=== PATIENT | male | born 1945 | race Caucasian/White ===

== ENCOUNTER 2016-11-17 14:57 | Inpatient (IN) | payer MEDICARE ==
[2016-11-17] MEDS ORDERED: solu-MEDROL 125 MG IV ONE (15:26)
[2016-11-17] MEDS ORDERED: DUONEB 0.5-3 MG/3 ml Neb IH ONE ×2 (15:26→15:41)
[2016-11-17] MEDS ORDERED: Levofloxacin 500MG/100ML D5W 100 ML IV ONE ×2 (15:28→16:03)
--- NOTE | 2016-11-17 15:35 | ERPHSYRPT ---
- History of Present Illness Time Seen by Provider: 11/17/16 15:10 Source: patient Exam Limitations: clinical condition Patient Subjective Stated Complaint: NONPROD COUGH SINCE FRIDAY. SEEN BY [employer] RE[employer]ISHER FRIDAY AND WAS GIVEN ANTIBIOTICS AND PREDNISONE. STATES IS NOT FEELING ANY BETTER. Triage Nursing Assessment: AMBULATED TO ROOM PER SELF. SKIN W/D, COLOR NORMAL, RESP NONLABORED. Physician History: PATIENT COMPLAINS OF PRODUCTIVE COUGH WITH DYSPNEA, HAS NO RELIEF AFTER 4 DAYS TREATMENT OF ANTIBIOTIC KEFLEX WITH PREDNISONE. DENIES FEVER OR CHILLS. DENIES CHEST PAIN. Timing/Duration: day(s) Cough Quality/Degree: moderate Possible Cause: occasional episodes Modifying Factors: Improves With: activity, coughing Associated Symptoms: muscle aches, wheezing Allergies/Adverse Reactions: Iodinated Contrast Media - Oral and [IV Dye, Iodine Containing Contrast ] Allergy (Mild, Verified 11/17/16 15:06) Hives Penicillins Allergy (Mild, Verified 11/17/16 15:06) Hives Home Medications: Hydrocodone Bit/Acetaminophen [[place] 10-325 Tablet] 1 each PO TID PRN 05/20/14 [ History] Pregabalin [Lyrica 150Mg] 150 mg PO BID 06/25/16 [History] Metronidazole/Skin Cleansr #23 [[place] 0.75% Gel Kit] 1 each TP BID 08/26/16 [ History] Minocycline [Minocycline 100MG Cap] 100 mg PO BID 08/26/16 [History] Cephalexin Mh 500 mg [Keflex 500 mg] 500 mg PO TID 11/17/16 [History] Prednisone 10 mg [Deltasone 10 mg] 20 mg PO DAILY 11/17/16 [History] Zolpidem Tartrate [Ambien] 5 mg PO HS 11/17/16 [History] Hx Tetanus, Diphtheria Vaccination/Date Given: Yes (3 YRS AGO) Hx Influenza Vaccination/Date Given: Yes Hx Pneumococcal Vaccination/Date Given: Yes - Review of Systems Constitutional: Fever, Chills Eyes: No Symptoms Ears, Nose, & Throat: No Symptoms Respiratory: Cough, Dyspnea Cardiac: No Symptoms, No Chest Pain, No Edema, No Syncope Abdominal/Gastrointestinal: Constipation, No Abdominal Pain, No Nausea, No Vomiting, No Diarrhea Genitourinary Symptoms: No Symptoms, No Dysuria Musculoskeletal: No Symptoms, No Back Pain, No Neck Pain Skin: No Symptoms, No Rash Neurological: No Symptoms, No Dizziness, No Focal Weakness, No Sensory Changes Psychological: No Symptoms Endocrine: No Symptoms All Other Systems: Reviewed and Negative - Past Medical History Pertinent Past Medical History: Yes Neurological History: No Pertinent History ENT History: Glaucoma Cardiac History: Other Respiratory History: No Pertinent History Endocrine Medical History: No Pertinent History Musculoskeletal History: Arthritis GI Medical History: GERD, Hernia, Other History: No Pertinent History Psycho-Social History: Anxiety, Depression Male Reproductive Disorders: No Pertinent History Other Medical History: heart cath - Past Surgical History Past Surgical History: Yes Neuro Surgical History: No Pertinent History Cardiac: Cardiac Catheterization Respiratory: No Pertinent History Gastrointestinal: Colon Resection, Hernia Repair Genitourinary: No Pertinent History Musculoskeletal: Orthopedic Surgery Male Surgical History: No Pertinent History Other Surgical History: Pt had major facial reconstruction; also colon resection for obstruction by polyps, shoulder surgery, - Social History Smoking Status: Never smoker Exposure to second hand smoke: No Drug Use: none Patient Lives Alone: No - Nursing Vital Signs Nursing Vital Signs: Initial Vital Signs Temperature 97.4 F Temperature Source Oral Pulse Rate 90 Respiratory Rate 18 Blood Pressure [] 103/72 Pain Intensity 0 - Physical Exam General Appearance: no apparent distress, alert, other (NO AUDIBLE WHEEZES) Eye Exam: PERRL/EOMI, eyes nml inspection Ears, Nose, Throat Exam: normal ENT inspection, TMs normal, pharynx normal, moist mucous membranes Neck Exam: normal inspection, non-tender, supple, full range of motion Respiratory Exam: diminished breath sounds, wheezing, No respiratory distress Cardiovascular Exam: regular rate/rhythm, normal heart sounds Gastrointestinal/Abdomen Exam: soft, normal bowel sounds, No tenderness Back Exam: normal inspection, No CVA tenderness, No vertebral tenderness Extremity Exam: normal inspection, normal range of motion Neurologic Exam: alert, oriented x 3, cooperative, normal mood/affect, sensation nml, No motor deficits Skin Exam: normal color, warm, dry, No rash Lymphatic Exam: No adenopathy SpO2 Interpretation: normal SpO2: 97 Oxygen Delivery: Room Air - Course EKG Interpreted by Me: RATE, Sinus Rhythm, NORMAL AXIS - Radiology Exams Chest X-ray Interpretation: Interpreted by me (NO EVIDENCE OF INFILTRATES, NO CHANGE IN ELEVATION OF LEFT HEMIDIAPHRAM) Ordered Tests: Active Orders 24 hr Category Date Time Status Up Ad Rupa ROUTINE Activity 11/17/16 18:15 Ordered Admission/Status Order ROUTINE Care 11/17/16 18:14 Ordered Admission/Status Order ROUTINE Care 11/17/16 18:15 Ordered Code Status Order ROUTINE Care 11/17/16 18:14 Ordered EKG-ER Only STAT Care 11/17/16 15:26 Active IV Care Q6H Care 11/17/16 18:14 Ordered IV Insertion STAT Care 11/17/16 15:26 Active Isolation, Initiate & Maintain DAILY Care 11/17/16 18:15 Ordered Oxygen-ED Only NASAL CANNULA 2 lpm Care 11/17/16 15:26 Active Norman Jose Miguele, Apply ROUTINE Care 11/17/16 18:14 Ordered Vital Signs Q4H Care 11/17/16 18:15 Ordered Weight,Daily 0600 Care 11/17/16 18:14 Ordered Cardiac Diet Diet 11/17/16 Breakfast Ordered CHEST 1 VIEW (PORTABLE) Stat Exams 11/17/16 15:26 Taken BLOOD CULTURE Stat Lab 11/17/16 15:26 Ordered BMP Stat Lab 11/17/16 15:40 Completed CBC W DIFF Stat Lab 11/17/16 15:40 Completed MAGNESIUM Stat Lab 11/17/16 15:40 Completed Manual Differential NC Stat Lab 11/17/16 15:40 Completed TROPONIN Stat Lab 11/17/16 15:40 Completed Oxygen NASAL CANNULA 2 lpm RT 11/17/16 18:15 Ordered Pulse Oximetry CONTINUOUS RT 11/17/16 18:16 Ordered Respiratory Nebulizer STAT RT 11/17/16 15:27 Completed Respiratory Nebulizer STAT RT 11/17/16 16:54 Active Transfer Order Routine Transfer 11/17/16 18:13 Ordered Medication Summary Generic Name Dose Route Start Last Admin Trade Name Freq PRN Reason Stop Dose Admin Sodium Chloride 1,000 mls @ 250 mls/hr 11/17/16 15:30 11/17/16 16:09 Sodium Chloride 0.9% 1000 Ml IV 12/17/16 15:29 250 mls/hr .Q4H GARY Administration Discontinued Medications Generic Name Dose Route Start Last Admin Trade Name Freq PRN Reason Stop Dose Admin Albuterol/Ipratropium 3 ml 11/17/16 15:26 11/17/16 15:45 Duoneb 0.5-3 Mg/3 Ml Neb IH 03/19/17 15:27 3 ml STAT ONE Administration Albuterol/Ipratropium Confirm 11/17/16 15:41 Duoneb 0.5-3 Mg/3 Ml Neb Administered 11/17/16 15:42 Dose 3 ml IH .STK-MED ONE Levofloxacin/Dextrose 100 mls @ 100 mls/hr 11/17/16 15:28 11/17/16 16:09 Levofloxacin 500mg/100ml D5w IV 11/17/16 16:27 100 mls/hr STAT ONE Administration Sodium Chloride Confirm 11/17/16 16:03 Sodium Chloride 0.9% 1000 Ml Administered 11/17/16 16:04 Dose 1,000 mls @ ud .ROUTE .STK-MED ONE Levofloxacin/Dextrose Confirm 11/17/16 16:03 Levofloxacin 500mg/100ml D5w Administered 11/17/16 16:04 Dose 100 mls @ ud IV .STK-MED ONE Levalbuterol HCl Confirm 11/17/16 16:49 Xopenex 1.25 Mg/0.5 Ml Ud Nebule Administered 11/17/16 16:50 Dose 1.25 mg IH .STK-MED ONE Levalbuterol HCl 1.25 mg 11/17/16 16:54 11/17/16 16:55 Xopenex 1.25 Mg/0.5 Ml Ud Nebule IH 11/17/16 16:55 1.25 mg STAT ONE Administration Methylprednisolone Sodium Succinate 125 mg 11/17/16 15:26 11/17/16 16:09 Solu-Medrol 125 Mg IV 11/17/16 15:27 125 mg STAT ONE Administration Methylprednisolone Sodium Succinate Confirm 11/17/16 16:03 Solu-Medrol 125 Mg Administered 11/17/16 16:04 Dose 125 mg .ROUTE .STK-MED ONE Sodium Chloride Confirm 11/17/16 16:50 Sodium Chloride 3 Ml Ud Nebules Administered 11/17/16 16:51 Dose 3 ml IH .STK-MED ONE Lab/Rad Data: Laboratory Result Diagrams 11/17/16 15:40 11/17/16 15:40 Laboratory Results 11/17/16 11/17/16 11/17/16 Range/Units 15:40 15:40 15:38 WBC 3.4 L (4.0-10.5) K/mm3 RBC 5.54 (4.1-5.6) M/mm3 Hgb 17.4 (12.5-18.0) gm/dl Hct 48.9 (42-50) % MCV 88.3 (78-100) fl MCH 31.4 (26-32) pg MCHC 35.6 (32-36) g/dl RDW 13.6 (11.5-14.0) % Plt Count 145 L (150-450) K/mm3 MPV 11.6 H (6-9.5) fl Segmented Neutrophils 73 H (36.-66.) % Lymphocytes (Manual) 17 L (24-44) % Monocytes (Manual) 10 (0.0-12.0) % Differential Comment NORMAL Platelet Estimate NORMAL (NORMAL) Sodium 137 (136-145) mEq/L Potassium 3.9 (3.5-5.1) mEq/L Chloride 102 (98-107) mEq/L Carbon Dioxide 23.5 (21-32) mEq/L Anion Gap 15.5 H (5-15) MEQ/L BUN 13 (9-20) mg/dL Creatinine 1.34 H (0.55-1.30) mg/dl Estimated GFR 56 ML/MIN Glucose 164 H (70-110) MG/DL Calcium 8.5 (8.5-10.1) mg/dL Magnesium 2.0 (1.8-2.4) mg/dL Troponin I < 0.017 (0.000-0.056) ng/ml Influenza Type A Ag POSITIVE (NEGATIVE) Influenza Type B Ag NEGATIVE (NEGATIVE) RSV (PCR) NEGATIVE (Negative) - Progress Progress Note: 11/17/16 16:42 PATIENT GIVEN IV SOLUMEDROL 125, LEVAQUIN 500MG IVPB AFTER BLOOD CULTURES, DUONEB AEROSOL TX FOLLOWED BY XOPENEX 1.25MG AEROSOL TX, Discussed with : Tarun Will see patient in: hospital (observation) ([id number] FOR ADMISSION) - Departure Time of Disposition: 18:20 Departure Disposition: Observation Clinical Impression: EXACERBATION COPD, INFLUENZA A Condition: Stable Critical Care Time: No Referrals: GABBY LANE MD [Primary Care Provider] -
[2016-11-17 15:49] LABS: Mean Cell Volume 88.3 fl (78-100); Mean Corpuscular Hemoglobin 31.4 pg (26-32); Mean Platelet Volume 11.6 fl (6-9.5); Platelet Count 145 K/mm3 (150-450); Red Blood Count 5.54 M/mm3 (4.1-5.6); Red Cell Distribution Width 13.6 % (11.5-14.0); White Blood Count 3.4 K/mm3 (4.0-10.5)
[2016-11-17] MEDS ORDERED: Sodium Chloride 0.9% 1000 ML 1,000 ML ONE (16:03)
[2016-11-17] MEDS ORDERED: solu-MEDROL 125 MG ONE ×2 (16:03→21:40)
[2016-11-17] MEDS: Sodium Chloride 0.9% 1000 ML 1,000 ML IV SCH ×2 (16:09→22:02)
[2016-11-17 16:10] LABS: ANION GAP 15.5 MEQ/L (5-15); BLOOD UREA NITROGEN 13 mg/dL (9-20); CHLORIDE 102 mEq/L (98-107); Carbon Dioxide 23.5 mEq/L (21-32); Glucose 164 MG/DL (70-110); Potassium 3.9 mEq/L (3.5-5.1); SODIUM 137 mEq/L (136-145)
[2016-11-17 16:16] LABS: TROPONIN < 0.017 ng/ml (0.000-0.056)
[2016-11-17 16:45] LABS: Platelet Estimate NORMAL (NORMAL); Total Cells Counted 100
[2016-11-17] MEDS ORDERED: Xopenex 1.25 MG/0.5 ML UD NEBULE IH ONE ×2 (16:49→16:54)
[2016-11-17] MEDS ORDERED: Sodium Chloride 3 ML UD NEBULES IH ONE ×2 (16:50→23:06)
[2016-11-17] MEDS ORDERED: LEVOFLOXACIN 750MG/150ML D5W 150 ML IV SCH (18:15)
[2016-11-17] MEDS ORDERED: Xopenex 1.25 MG/0.5 ML UD NEBULE IH PRN (18:20)
--- NOTE | 2016-11-17 20:16 | XRAY ---
Indication: Cough. Comparison: August 26, 2016. Portable chest again demonstrates minimal bibasilar atelectasis/scarring. Upper lungs clear. Heart is not enlarged. Stable subcarinal calcified node. Bony thorax intact again with mild osteopenia and degenerative changes. Impression: Stable nonacute chest with chronic features.
[2016-11-17] MEDS: Norco 10/325 MG Tablet PO PRN (20:51)
[2016-11-17] MEDS: LYRICA 150MG PO SCH (22:02)
[2016-11-17] MEDS: solu-MEDROL 125 MG IV SCH (22:03)
[2016-11-17] MEDS: Xopenex 1.25 MG/0.5 ML UD NEBULE IH SCH (23:29)
[2016-11-17] MEDS: Ambien 5 MG Tablet PO SCH (23:50)
[2016-11-18] MEDS ORDERED: Sodium Chloride 3 ML UD NEBULES IH ONE ×2 (03:43→22:53)
[2016-11-18] MEDS: Xopenex 1.25 MG/0.5 ML UD NEBULE IH SCH ×6 (03:45→23:25)
[2016-11-18] MEDS: solu-MEDROL 125 MG IV SCH ×4 (05:46→17:27)
[2016-11-18] MEDS: DUONEB 0.5-3 MG/3 ml Neb IH SCH ×2 (06:24→06:26)
[2016-11-18] MEDS: Sodium Chloride 0.9% 1000 ML 1,000 ML IV SCH ×2 (06:25→20:57)
--- NOTE | 2016-11-18 07:51 | PCM.HP ---
History of Present Illness - Chief Complaint Chief Complaint: Shortness of Breath History of Present Illness: is a 71 year old male who presented with cough, fever and feeling poorly. Had +flu swab for influenza a, had wheezing as well. no hx of smoking, he has felt poorly for several days, failed outpatient treatment with po steroids and antibiotics - Review of Systems Constitutional: Fever, Chills Respiratory: Cough, Short Of Breath Cardiac: No Chest Pain, No Palpitations, No Syncope Abdominal/Gastrointestinal: No Abdominal Pain, No Nausea, No Vomiting, No Diarrhea Skin: No Rash All Other Systems: Reviewed and Negative Medications & Allergies Home Medications: Home Medication List Hydrocodone Bit/Acetaminophen [[place] 10-325 Tablet] 1 each PO TID PRN 05/20/14 [ History Confirmed 11/17/16] Pregabalin [Lyrica 150Mg] 150 mg PO BID 06/25/16 [History Confirmed 11/17/16] Metronidazole/Skin Cleansr #23 [[place] 0.75% Gel Kit] 1 each TP BID 08/26/16 [ History Confirmed 11/17/16] Minocycline [Minocycline 100MG Cap] 100 mg PO BID 08/26/16 [History Confirmed 11/17/16] Cephalexin Mh 500 mg [Keflex 500 mg] 500 mg PO TID 11/17/16 [History Confirmed 11/17/16] Prednisone 10 mg [Deltasone 10 mg] 20 mg PO DAILY 11/17/16 [History Confirmed 11/17/16] Zolpidem Tartrate [Ambien] 5 mg PO HS 11/17/16 [History Confirmed 11/17/16] Allergies/Adverse Reactions: Allergies Allergy/AdvReac Type Severity Reaction Status Date / Time Iodinated Contrast Media - Allergy Mild Hives Verified 11/17/16 15:06 Oral and [IV Dye, Iodine Containing Contrast ] Penicillins Allergy Mild Hives Verified 11/17/16 15:06 - Past Medical History Past Medical History: Yes Neurological History: No Pertinent History ENT History: Glaucoma Cardiac History: Other Respiratory History: No Pertinent History Endocrine Medical History: No Pertinent History Musculoskelatal History: Arthritis GI Medical History: GERD, Hernia, Other History: No Pertinent History Pyscho-Social History: Anxiety, Depression Male Reproductive Disorders: No Pertinent History Comment: heart cath - Past Surgical History Past Surgical History: Yes Neuro Surgical History: No Pertinent History Cardiac History: Cardiac Catheterization Respiratory Surgery: No Pertinent History GI Surgical History: Colon Resection, Hernia Repair Genitourinary Surgical Hx: No Pertinent History Musculskeletal Surgical Hx: Orthopedic Surgery Male Surgical History: No Pertinent History Other Surgical History: Pt had major facial reconstruction; also colon resection for obstruction by polyps, shoulder surgery, - Social History Smoking Status: Never smoker Exposure to second hand smoke: No Alcohol: None Drug Use: none - Physical Exam Vital Signs: Vital Signs - 24 hr Temp Pulse Resp BP Pulse Ox 11/18/16 06:25 60 20 94 L 11/18/16 06:00 18 11/18/16 04:00 98.2 F 63 18 124/67 96 11/18/16 03:45 63 16 96 11/18/16 02:00 18 11/18/16 00:00 98.1 F 68 18 138/79 95 11/17/16 23:29 68 18 95 11/17/16 20:00 97.4 F 90 103/72 97 11/17/16 19:19 97.4 F 90 103/72 97 11/17/16 18:24 97 11/17/16 16:55 90 18 98 11/17/16 16:45 87 24 103/72 95 11/17/16 15:45 81 20 96 11/17/16 15:01 97.4 F 81 20 97 Oxygen-Last 24 hours O2 Percentage 2 Liters = 28% General Appearance: no apparent distress, alert Eye Exam: PERRL/EOMI, eyes nml inspection Respiratory Exam: wheezing, No accessory muscle use Cardiovascular Exam: regular rate/rhythm Gastrointestinal/Abdomen Exam: soft, normal bowel sounds, No tenderness, No mass Extremity Exam: normal inspection, normal range of motion, pelvis stable Skin Exam: normal color, warm, dry, No rash Results - Other Procedures and Tests Respiratory Therapy 11/17/16 18:15 Oxygen NASAL CANNULA 2 lpm 11/17/16 22:22 Respiratory Nebulizer Q4H Assessment/Plan (1) Influenza A Current Visit: Yes Status: Acute Assessment & Plan: supportive care at this time. Code(s): J10.1 - FLU DUE TO OTH IDENT INFLUENZA VIRUS W OTH RESP MANIFEST (2) COPD with acute exacerbation Current Visit: Yes Status: Acute Assessment & Plan: IV abx, steorids and nebs Code(s): J44.1 - CHRONIC OBSTRUCTIVE PULMONARY DISEASE W (ACUTE) EXACERBATION
[2016-11-18] MEDS: LEVOFLOXACIN 750MG/150ML D5W 150 ML IV SCH (09:08)
[2016-11-18] MEDS: Norco 10/325 MG Tablet PO PRN ×2 (09:08→14:59)
[2016-11-18] MEDS: LYRICA 150MG PO SCH ×2 (09:08→23:07)
[2016-11-18] MEDS: Zofran 4 MG/2 ML VIAL IV PRN (14:59)
[2016-11-18] MEDS: Ambien 5 MG Tablet PO SCH (23:07)
[2016-11-18] MEDS: Sodium Chloride 3 ML UD NEBULES IH SCH (23:26)
[2016-11-19] MEDS: solu-MEDROL 125 MG IV SCH ×5 (00:02→23:09)
[2016-11-19] MEDS: Zofran 4 MG/2 ML VIAL IV PRN ×3 (00:10→18:27)
[2016-11-19] MEDS: Sodium Chloride 3 ML UD NEBULES IH SCH ×6 (03:07→22:50)
[2016-11-19] MEDS: Xopenex 1.25 MG/0.5 ML UD NEBULE IH SCH ×6 (03:07→22:50)
[2016-11-19 05:59] LABS: Mean Cell Volume 89.9 fl (78-100); Mean Corpuscular Hemoglobin 32.1 pg (26-32); Mean Platelet Volume 11.9 fl (6-9.5); Platelet Count 134 K/mm3 (150-450); Red Blood Count 4.45 M/mm3 (4.1-5.6); Red Cell Distribution Width 13.3 % (11.5-14.0); White Blood Count 6.3 K/mm3 (4.0-10.5)
[2016-11-19 06:16] LABS: ALBUMIN 2.9 g/dL (3.4-5.0); ALKALINE PHOSPHATASE 73 U/L (46-116); ANION GAP 11.6 MEQ/L (5-15); BILIRUBIN,TOTAL 0.3 mg/dL (0.2-1.0); BLOOD UREA NITROGEN 16 mg/dL (9-20); CHLORIDE 106 mEq/L (98-107); Glucose 237 MG/DL (70-110); Potassium 4.8 mEq/L (3.5-5.1); SGOT/AST 25 U/L (15-37); SGPT/ALT 26 U/L (12-78); SODIUM 138 mEq/L (136-145)
[2016-11-19 06:24] LABS: BAND 2 % (0.0-2.0); Total Cells Counted 100
[2016-11-19 06:25] LABS: ANISOCYTOSIS 1+; Platelet Estimate NORMAL (NORMAL); Poikilocytosis 1+
[2016-11-19] MEDS: LEVOFLOXACIN 750MG/150ML D5W 150 ML IV SCH (09:36)
[2016-11-19] MEDS: LYRICA 150MG PO SCH ×3 (09:37→22:55)
--- NOTE | 2016-11-19 09:40 | PCM.NOTE ---
Date and Time: 11/19/16937 Subjective Assessment: patient c/o nausea and vomiting. still has significant cough and feeling poorly in general Objective Exam General Appearance: no apparent distress, alert Respiratory Exam: wheezing Cardiovascular Exam: regular rate/rhythm, normal heart sounds Gastrointestinal/Abdomen Exam: soft, No tenderness, No mass OBJECTIVE DATA Vital Signs: Vital Signs - 24 hr Temp Pulse Resp BP Pulse Ox 11/19/16 08:00 98.4 F 67 18 122/64 96 11/19/16 07:00 66 16 98 11/19/16 06:00 20 11/19/16 04:00 97.6 F 66 20 126/60 97 11/19/16 03:07 76 20 97 11/19/16 02:00 19 11/19/16 00:00 97.4 F 61 19 141/75 95 11/18/16 23:25 61 19 95 11/18/16 22:00 19 11/18/16 19:52 97.6 F 60 20 117/75 95 11/18/16 19:07 60 20 95 11/18/16 18:00 18 11/18/16 16:19 97.5 F 76 18 118/74 97 11/18/16 14:59 97.8 F 11/18/16 14:55 75 16 94 L 11/18/16 14:00 16 11/18/16 11:12 97.8 F 70 20 120/68 97 11/18/16 10:38 66 18 95 11/18/16 10:00 20 Pain Assessment - Last Documented Pain Intensity 4 Pain Scale Used 0-10 Pain Scale Intake and Output: Intake & Output 11/16/16 11/17/16 11/18/16 11/19/16 11:59 11:59 11:59 11:59 Intake Total 1099 2318 Output Total 900 Balance 1099 1418 Weight 92.941 kg 93.44 kg Lab Results: Lab Results-Last 24 Hours 11/19/16 11/19/16 Range/Units 05:25 05:25 WBC 6.3 (4.0-10.5) K/mm3 RBC 4.45 (4.1-5.6) M/mm3 Hgb 14.3 (12.5-18.0) gm/dl Hct 40.0 L (42-50) % MCV 89.9 (78-100) fl MCH 32.1 H (26-32) pg MCHC 35.8 (32-36) g/dl RDW 13.3 (11.5-14.0) % Plt Count 134 L (150-450) K/mm3 MPV 11.9 H (6-9.5) fl Segmented Neutrophils 95 H (36.-66.) % Band Neutrophils 2 (0.0-2.0) % Lymphocytes (Manual) 3 L (24-44) % Platelet Estimate NORMAL (NORMAL) Poikilocytosis 1+ Anisocytosis 1+ Sodium 138 (136-145) mEq/L Potassium 4.8 (3.5-5.1) mEq/L Chloride 106 (98-107) mEq/L Carbon Dioxide 25.0 (21-32) mEq/L Anion Gap 11.6 (5-15) MEQ/L BUN 16 (9-20) mg/dL Creatinine 1.08 (0.55-1.30) mg/dl Estimated GFR > 60 ML/MIN Glucose 237 H (70-110) MG/DL Calcium 8.3 L (8.5-10.1) mg/dL Total Bilirubin 0.3 (0.2-1.0) mg/dL AST 25 (15-37) U/L ALT 26 (12-78) U/L Alkaline Phosphatase 73 (46-116) U/L Serum Total Protein 6.0 L (6.4-8.2) gm/dL Albumin 2.9 L (3.4-5.0) g/dL Assessment/Plan (1) Influenza A Current Visit: Yes Status: Acute Assessment & Plan: continue supportive care Code(s): J10.1 - FLU DUE TO OTH IDENT INFLUENZA VIRUS W OTH RESP MANIFEST (2) COPD with acute exacerbation Current Visit: Yes Status: Acute Assessment & Plan: continue current management, on levaquin, nebs and solu-medrol Code(s): J44.1 - CHRONIC OBSTRUCTIVE PULMONARY DISEASE W (ACUTE) EXACERBATION (3) Nausea & vomiting Current Visit: Yes Status: Acute Assessment & Plan: continue zofran prn, add IV pepcid Code(s): R11.2 - NAUSEA WITH VOMITING, UNSPECIFIED
[2016-11-19] MEDS: Pepcid 20 MG VIAL IV SCH (10:58)
[2016-11-19] MEDS: Sodium Chloride 0.9% 1000 ML 1,000 ML IV SCH (20:05)
[2016-11-19] MEDS: Ambien 5 MG Tablet PO SCH ×2 (21:57→22:56)
[2016-11-19] MEDS: Norco 10/325 MG Tablet PO PRN (23:00)
[2016-11-20] MEDS: Zofran 4 MG/2 ML VIAL IV PRN ×2 (00:36→12:28)
[2016-11-20] MEDS: Sodium Chloride 3 ML UD NEBULES IH SCH ×6 (03:33→23:26)
[2016-11-20] MEDS: Xopenex 1.25 MG/0.5 ML UD NEBULE IH SCH ×6 (03:33→23:26)
[2016-11-20 05:32] LABS: Mean Cell Volume 90.7 fl (78-100); Mean Corpuscular Hemoglobin 31.1 pg (26-32); Mean Platelet Volume 11.5 fl (6-9.5); Platelet Count 127 K/mm3 (150-450); Red Blood Count 4.41 M/mm3 (4.1-5.6); Red Cell Distribution Width 13.7 % (11.5-14.0); White Blood Count 6.4 K/mm3 (4.0-10.5)
[2016-11-20 05:55] LABS: ALBUMIN 2.8 g/dL (3.4-5.0); ALKALINE PHOSPHATASE 62 U/L (46-116); ANION GAP 10.3 MEQ/L (5-15); BILIRUBIN,TOTAL 0.4 mg/dL (0.2-1.0); BLOOD UREA NITROGEN 23 mg/dL (9-20); CHLORIDE 107 mEq/L (98-107); Carbon Dioxide 25.5 mEq/L (21-32); Glucose 250 MG/DL (70-110); Potassium 4.4 mEq/L (3.5-5.1); SGOT/AST 27 U/L (15-37); SGPT/ALT 37 U/L (12-78); SODIUM 138 mEq/L (136-145); Total Protein 5.7 gm/dL (6.4-8.2)
[2016-11-20] MEDS: solu-MEDROL 125 MG IV SCH ×3 (07:01→17:37)
[2016-11-20 07:25] LABS: Platelet Estimate NORMAL (NORMAL); Total Cells Counted 100
--- NOTE | 2016-11-20 08:34 | PCM.NOTE ---
Date and Time: 11/20/16831 Subjective Assessment: patient c/o persistent cough and congestion, vomited x 1 last night. Objective Exam General Appearance: no apparent distress, alert Respiratory Exam: crackles/rales, wheezing Cardiovascular Exam: regular rate/rhythm, normal heart sounds Gastrointestinal/Abdomen Exam: soft, No tenderness, No mass Extremity Exam: normal inspection, normal range of motion OBJECTIVE DATA Vital Signs: Vital Signs - 24 hr Temp Pulse Resp BP Pulse Ox 11/20/16 08:00 97.8 F 63 20 109/57 95 11/20/16 06:00 19 11/20/16 04:00 98.0 F 55 L 19 117/56 95 11/20/16 03:33 55 L 19 95 11/20/16 02:00 18 11/19/16 23:32 97.6 F 58 L 18 142/77 95 11/19/16 22:50 58 L 18 95 11/19/16 22:00 18 11/19/16 19:55 98.6 F 65 19 122/57 96 11/19/16 18:44 65 19 96 11/19/16 18:00 18 11/19/16 15:41 98.4 F 69 18 131/81 98 11/19/16 15:00 61 18 96 11/19/16 14:00 18 11/19/16 12:00 97.9 F 61 18 125/70 96 11/19/16 11:00 68 18 98 11/19/16 10:00 18 Pain Assessment - Last Documented Pain Intensity 5 Pain Scale Used 0-10 Pain Scale Intake and Output: Intake & Output 11/17/16 11/18/16 11/19/16 11/20/16 11:59 11:59 11:59 11:59 Intake Total 2318 2343 Output Total 900 300 Balance 1418 2043 Weight 92.941 kg 93.44 kg Lab Results: Lab Results-Last 24 Hours 11/20/16 11/20/16 Range/Units 05:10 05:10 WBC 6.4 (4.0-10.5) K/mm3 RBC 4.41 (4.1-5.6) M/mm3 Hgb 13.7 (12.5-18.0) gm/dl Hct 40.0 L (42-50) % MCV 90.7 (78-100) fl MCH 31.1 (26-32) pg MCHC 34.3 (32-36) g/dl RDW 13.7 (11.5-14.0) % Plt Count 127 L (150-450) K/mm3 MPV 11.5 H (6-9.5) fl Segmented Neutrophils 98 H (36.-66.) % Lymphocytes (Manual) 2 L (24-44) % Differential Comment NORMAL Platelet Estimate NORMAL (NORMAL) Sodium 138 (136-145) mEq/L Potassium 4.4 (3.5-5.1) mEq/L Chloride 107 (98-107) mEq/L Carbon Dioxide 25.5 (21-32) mEq/L Anion Gap 10.3 (5-15) MEQ/L BUN 23 H (9-20) mg/dL Creatinine 1.08 (0.55-1.30) mg/dl Estimated GFR > 60 ML/MIN Glucose 250 H (70-110) MG/DL Calcium 8.0 L (8.5-10.1) mg/dL Total Bilirubin 0.4 (0.2-1.0) mg/dL AST 27 (15-37) U/L ALT 37 (12-78) U/L Alkaline Phosphatase 62 (46-116) U/L Serum Total Protein 5.7 L (6.4-8.2) gm/dL Albumin 2.8 L (3.4-5.0) g/dL Assessment/Plan (1) Influenza A Current Visit: Yes Status: Acute Assessment & Plan: stable, currently afebrile Code(s): J10.1 - FLU DUE TO OTH IDENT INFLUENZA VIRUS W OTH RESP MANIFEST (2) COPD with acute exacerbation Current Visit: Yes Status: Acute Assessment & Plan: continue IV solu medrol, nebs and antibiotics Code(s): J44.1 - CHRONIC OBSTRUCTIVE PULMONARY DISEASE W (ACUTE) EXACERBATION (3) Nausea & vomiting Current Visit: Yes Status: Acute Code(s): R11.2 - NAUSEA WITH VOMITING, UNSPECIFIED
[2016-11-20] MEDS: LYRICA 150MG PO SCH ×2 (09:40→22:50)
[2016-11-20] MEDS: LEVOFLOXACIN 750MG/150ML D5W 150 ML IV SCH (09:40)
[2016-11-20] MEDS: Pepcid 20 MG VIAL IV SCH (09:40)
[2016-11-20] MEDS: Ambien 5 MG Tablet PO SCH (22:50)
[2016-11-21] MEDS: solu-MEDROL 125 MG IV SCH ×4 (00:01→18:05)
[2016-11-21] MEDS: Xopenex 1.25 MG/0.5 ML UD NEBULE IH SCH ×6 (04:32→23:45)
[2016-11-21] MEDS: Sodium Chloride 3 ML UD NEBULES IH SCH ×6 (04:32→23:51)
[2016-11-21] MEDS: Norco 10/325 MG Tablet PO PRN ×2 (08:15→18:05)
--- NOTE | 2016-11-21 08:23 | PCM.NOTE ---
Date and Time: 11/21/16820 Subjective Assessment: patient still with significant cough, has not had fever. vomited x 1 overnight Objective Exam General Appearance: no apparent distress, alert Skin Exam: normal color, warm, dry Respiratory Exam: rhonchi, wheezing Cardiovascular Exam: regular rate/rhythm, normal heart sounds Gastrointestinal/Abdomen Exam: soft, No tenderness, No mass Extremity Exam: normal inspection, normal range of motion OBJECTIVE DATA Vital Signs: Vital Signs - 24 hr Temp Pulse Resp BP Pulse Ox 11/21/16 07:33 98.0 F 60 20 112/62 96 11/21/16 06:50 69 18 95 11/21/16 06:00 18 11/21/16 04:32 67 18 94 L 11/21/16 04:00 97.9 F 67 18 120/57 94 L 11/21/16 02:00 18 11/21/16 00:00 98.4 F 66 18 141/69 98 11/20/16 23:26 60 18 96 11/20/16 22:00 18 11/20/16 20:00 98.1 F 69 20 135/74 95 11/20/16 19:10 57 L 18 96 11/20/16 17:48 20 11/20/16 16:00 98.3 F 63 20 124/66 95 11/20/16 14:45 69 20 96 11/20/16 14:00 20 11/20/16 12:00 98 F 59 L 20 123/72 94 L 11/20/16 10:41 68 20 96 11/20/16 10:00 20 Pain Assessment - Last Documented Pain Intensity 7 Pain Scale Used 0-10 Pain Scale Intake and Output: Intake & Output 11/18/16 11/19/16 11/20/16 11/21/16 11:59 11:59 11:59 11:59 Intake Total 2318 2343 2212 Output Total 900 300 Balance 1418 2043 2212 Weight 92.941 kg 93.44 kg 93.44 kg Assessment/Plan (1) Influenza A Current Visit: Yes Status: Acute Assessment & Plan: stable, on tamiflu. no fever for the last few days. ok to d/c isolation day #5 Code(s): J10.1 - FLU DUE TO OTH IDENT INFLUENZA VIRUS W OTH RESP MANIFEST (2) COPD with acute exacerbation Current Visit: Yes Status: Acute Assessment & Plan: continue IV solumedrol, levaquin and nebs Code(s): J44.1 - CHRONIC OBSTRUCTIVE PULMONARY DISEASE W (ACUTE) EXACERBATION (3) Nausea & vomiting Current Visit: Yes Status: Acute Code(s): R11.2 - NAUSEA WITH VOMITING, UNSPECIFIED
[2016-11-21] MEDS ORDERED: PREVNAR 13 SYRINGE IM ONE (10:00)
[2016-11-21] MEDS: LEVOFLOXACIN 750MG/150ML D5W 150 ML IV SCH (10:09)
[2016-11-21] MEDS: Pepcid 20 MG VIAL IV SCH (10:09)
[2016-11-21] MEDS: LYRICA 150MG PO SCH ×2 (10:10→21:20)
[2016-11-21] MEDS: Zofran 4 MG/2 ML VIAL IV PRN ×2 (12:57→18:36)
[2016-11-21] MEDS: Sodium Chloride 0.9% 1000 ML 1,000 ML IV SCH ×2 (13:30→14:49)
[2016-11-21] MEDS: Ambien 5 MG Tablet PO SCH (21:20)
[2016-11-22] MEDS: Norco 10/325 MG Tablet PO PRN ×2 (00:35→05:17)
[2016-11-22] MEDS: solu-MEDROL 125 MG IV SCH ×2 (00:35→05:18)
[2016-11-22] MEDS: Xopenex 1.25 MG/0.5 ML UD NEBULE IH SCH ×4 (03:27→14:43)
[2016-11-22] MEDS: Sodium Chloride 3 ML UD NEBULES IH SCH (06:32)
[2016-11-22] MEDS: Zofran 4 MG/2 ML VIAL IV PRN (08:45)
[2016-11-22] MEDS ORDERED: NovoLOG Insulin SQ PRN (08:45)
[2016-11-22] MEDS: Sodium Chloride 0.9% 1000 ML 1,000 ML IV SCH (08:50)
[2016-11-22 08:59] LABS: Mean Cell Volume 90.7 fl (78-100); Mean Corpuscular Hemoglobin 31.1 pg (26-32); Mean Platelet Volume 11.5 fl (6-9.5); Platelet Count 129 K/mm3 (150-450); Red Blood Count 4.73 M/mm3 (4.1-5.6); Red Cell Distribution Width 13.4 % (11.5-14.0); White Blood Count 8.6 K/mm3 (4.0-10.5)
[2016-11-22] MEDS: LYRICA 150MG PO SCH (09:08)
[2016-11-22] MEDS: Pepcid 20 MG VIAL IV SCH (09:08)
[2016-11-22] MEDS: LEVOFLOXACIN 750MG/150ML D5W 150 ML IV SCH (09:09)
--- NOTE | 2016-11-22 09:27 | XRAY ---
Indication: Wheezing and vomiting. Comparison: November 17, 2016. Portable chest unchanged again with minimal bibasilar atelectasis/scarring. Heart is not enlarged. No new/acute findings.
[2016-11-22 09:33] LABS: BAND 4 % (0.0-2.0); Platelet Estimate NORMAL (NORMAL); Total Cells Counted 100
[2016-11-22 09:50] LABS: ANION GAP 14.3 MEQ/L (5-15); BLOOD UREA NITROGEN 21 mg/dL (9-20); CHLORIDE 106 mEq/L (98-107); Carbon Dioxide 25.5 mEq/L (21-32); Glucose 283 MG/DL (70-110); SODIUM 141 mEq/L (136-145)
[2016-11-22] MEDS: Atrovent 0.5MG NEBULE IH SCH ×2 (10:45→14:43)
[2016-11-22 11:28] VITALS: BP 125/65; O2SAT 96
--- NOTE | 2016-11-22 13:45 | DS ---
DISCHARGE DIAGNOSIS: 1. INFLUENZA A. 2. HYPERGLYCEMIA. 3. NAUSEA AND VOMITING. DISCHARGE PHYSICAL EXAM: VITALS: Temperature current 97.8, temperature maximum 98.3, heart rate 57-68, respiratory rate 14-20, O2 saturation 94-96% on room air, BP 118-147/64-81. GENERAL: The patient is sitting up a pleasant, talkative man in no acute distress. CVS: He has a regular rate and rhythm. No murmurs, gallops, or rubs. CHEST: Has wheezing throughout. Equal breath sounds. No crackles are appreciated. ABDOMEN: Soft, nontender, nondistended with normal bowel sounds. EXTREMITIES: No clubbing, cyanosis, or edema. SKIN: Warm, dry, and intact. HOSPITAL COURSE: 1. Influenza A. Mr. Griffith was diagnosed with influenza A in the Emergency Department. Was cared for by Dr. Mcneil throughout his hospitalization until I saw him today as Dr. Mcneil is out of the clinic. Dr. Mcneil' notes say that he has been on Tamiflu. However, the pharmacist nor I could find where he has received Tamiflu during his hospitalization. At this point, he is way past 48 hours and not requiring O2 and so I am not sure there would be much benefit to adding Tamiflu at this time. Will continue with supportive treatment in the Swing Bed. He has been on IV steroids and breathing treatments with Xopenex. I have asked the respiratory therapist to consider adding ipratropium to this. I am going to start weaning his steroids and will continue with supportive care. Will recheck a chest x-ray today as well as a CBC and BMP also. He was receiving levofloxacin for a chronic obstructive pulmonary disease exacerbation. However, the patient states that he has never had chronic obstructive pulmonary disease in the past and has never smoked. This will actually be day 5. If his chest x-ray looks okay as far as no kind of infiltrate concerning for pneumonia, I am planning to discontinue the Levaquin. 2. Hyperglycemia. Again, the patient states he has never had problems with this. His blood sugar was elevated to 250 on 11/20/16. I am rechecking the BMP today and will start Accu-Cheks and use a low-dose sliding scale of NovoLog if needed and will check an Hgb A1C. 3. Nausea and vomiting. Continues to have some of this. He states he will belch and things will just kind of come up. He has a history of hiatal hernia. He reports the Protonix that he is on has been helping. DISPOSITION: The patient will be discharged to a Swing Bed to continue his current medications. Will plan to discontinue Levaquin after today as long as his chest x-ray looks okay. Will continue with IV Solu-Medrol and breathing treatments and close observation with respiratory therapist.
[2016-11-22] MEDS ORDERED: solu-MEDROL 125 MG IV SCH (14:00)
[2016-11-22 14:47] VITALS: PULSE 55
== END 2016-11-22 15:30 | disposition swing bed (61) | DRG 194 ==
LOC: ED 14:57 → MED SURG 18:34 → OBSVTOIN 11-18 07:49
PROVIDERS: ADMIT Family Medicine; ATTEND Family Medicine
DX: J10.1 Influenza due to other identified influenza virus with other respiratory manifestations (principal); J44.1 Chronic obstructive pulmonary disease with (acute) exacerbation; R73.9 Hyperglycemia, unspecified; R11.2 Nausea with vomiting, unspecified; F41.8 Other specified anxiety disorders; K21.9 Gastro-esophageal reflux disease without esophagitis; M19.90 Unspecified osteoarthritis, unspecified site; Z79.899 Other long term (current) drug therapy
CPT/HCPCS: 36000; 36415; 71010; 71020; 80048; 80053; 82962; 83036; 83735; 84484; 85025; 87040; 87631; 90670; 93005; 94640; 94760; 96360; 96361; 96365; 96374; 99285; G0009; G0378; J1956; J2405; J2930; A9270-GY

== ENCOUNTER 2016-11-22 14:59 | Inpatient (IN) | payer MEDICARE ==
[2016-11-22] MEDS ORDERED: Xopenex 1.25 MG/0.5 ML UD NEBULE IH PRN (15:42)
[2016-11-22] MEDS ORDERED: Sodium Chloride 3 ML UD NEBULES IH SCH (15:42)
[2016-11-22] MEDS ORDERED: LEVOFLOXACIN 750MG/150ML D5W 150 ML IV SCH (15:42)
[2016-11-22] MEDS: NovoLOG Insulin SQ PRN ×2 (17:06→22:23)
[2016-11-22] MEDS: Xopenex 1.25 MG/0.5 ML UD NEBULE IH SCH ×2 (18:38→22:31)
[2016-11-22] MEDS: Atrovent 0.5MG NEBULE IH SCH ×2 (18:38→22:31)
[2016-11-22] MEDS: LYRICA 150MG PO SCH (22:10)
[2016-11-22] MEDS: solu-MEDROL 125 MG IV SCH (22:10)
[2016-11-22] MEDS: Ambien 5 MG Tablet PO SCH (22:10)
[2016-11-22] MEDS: Norco 10/325 MG Tablet PO PRN (22:21)
[2016-11-23] MEDS: Xopenex 1.25 MG/0.5 ML UD NEBULE IH SCH ×6 (02:58→22:51)
[2016-11-23] MEDS: Atrovent 0.5MG NEBULE IH SCH ×6 (02:58→22:51)
[2016-11-23] MEDS: solu-MEDROL 125 MG IV SCH ×3 (06:46→21:30)
[2016-11-23] MEDS: NovoLOG Insulin SQ PRN ×4 (08:10→21:31)
[2016-11-23] MEDS: Pepcid 20 MG VIAL IV SCH (09:35)
[2016-11-23] MEDS: LYRICA 150MG PO SCH ×2 (09:35→21:30)
[2016-11-23] MEDS ORDERED: Aplisol ID SCH (10:00)
[2016-11-23] MEDS: Zofran 4 MG/2 ML VIAL IV PRN ×2 (14:43→19:43)
[2016-11-23] MEDS: Norco 10/325 MG Tablet PO PRN ×2 (16:56→21:31)
[2016-11-23] MEDS: Sodium Chloride 0.9% 1000 ML 1,000 ML IV SCH (19:44)
[2016-11-23] MEDS: Ambien 5 MG Tablet PO SCH (21:31)
[2016-11-24] MEDS: Xopenex 1.25 MG/0.5 ML UD NEBULE IH SCH ×6 (03:02→23:01)
[2016-11-24] MEDS: Atrovent 0.5MG NEBULE IH SCH ×6 (03:02→23:01)
[2016-11-24] MEDS: Zofran 4 MG/2 ML VIAL IV PRN (05:44)
[2016-11-24] MEDS: NovoLOG Insulin SQ PRN ×2 (08:45→16:57)
[2016-11-24] MEDS: LYRICA 150MG PO SCH ×2 (08:45→22:59)
[2016-11-24] MEDS: Pepcid 20 MG VIAL IV SCH (08:57)
[2016-11-24] MEDS: solu-MEDROL 125 MG IV SCH ×3 (08:58→22:59)
[2016-11-24] MEDS ORDERED: Robitussin AC Syrup Unit Dose Cup PO PRN (09:13)
[2016-11-24] MEDS: Protonix 40MG Tablet PO SCH (10:12)
[2016-11-24] MEDS: Norco 10/325 MG Tablet PO PRN (19:56)
[2016-11-24] MEDS: Ambien 5 MG Tablet PO SCH (22:59)
[2016-11-25] MEDS: NovoLOG Insulin SQ PRN ×4 (00:27→21:35)
[2016-11-25] MEDS: Xopenex 1.25 MG/0.5 ML UD NEBULE IH SCH ×6 (03:04→22:46)
[2016-11-25] MEDS: Atrovent 0.5MG NEBULE IH SCH ×6 (03:05→22:46)
[2016-11-25] MEDS: solu-MEDROL 125 MG IV SCH (05:18)
[2016-11-25] MEDS: Sodium Chloride 0.9% 1000 ML 1,000 ML IV SCH ×3 (05:36→05:37)
[2016-11-25] MEDS: Protonix 40MG Tablet PO SCH (08:22)
[2016-11-25] MEDS: Pepcid 20 MG VIAL IV SCH (08:22)
[2016-11-25] MEDS: LYRICA 150MG PO SCH ×2 (08:22→21:32)
[2016-11-25] MEDS: DELTASONE 10 MG PO SCH (10:14)
[2016-11-25] MEDS: Ambien 5 MG Tablet PO SCH (21:32)
[2016-11-25] MEDS: Sodium Chloride 0.9% 10 ML FLUSH Syringe IV SCH (22:49)
[2016-11-26] MEDS: Atrovent 0.5MG NEBULE IH SCH ×2 (03:01→07:04)
[2016-11-26] MEDS: Xopenex 1.25 MG/0.5 ML UD NEBULE IH SCH ×2 (03:01→07:04)
[2016-11-26] MEDS: Sodium Chloride 0.9% 10 ML FLUSH Syringe IV SCH (05:28)
[2016-11-26 07:10] VITALS: PULSE 64; O2SAT 93
[2016-11-26 07:50] VITALS: BP 119/68
[2016-11-26] MEDS: NovoLOG Insulin SQ PRN (08:09)
[2016-11-26] MEDS: Norco 10/325 MG Tablet PO PRN (08:12)
[2016-11-26] MEDS: DELTASONE 10 MG PO SCH (08:28)
[2016-11-26] MEDS: Pepcid 20 MG VIAL IV SCH (08:28)
[2016-11-26] MEDS: Protonix 40MG Tablet PO SCH (08:28)
[2016-11-26] MEDS: LYRICA 150MG PO SCH (08:28)
--- NOTE | 2016-11-26 08:55 | PCM.DCORD ---
- Discharge Discharge Date: 11/26/16 Disposition: Home, Self-Care Condition: Stable Prescriptions: New Prednisone 10 mg [Deltasone 10 mg] 10 mg PO UD #18 tablet Continue Hydrocodone Bit/Acetaminophen [[place] 10-325 Tablet] 1 each PO TID PRN PRN Reason: Pain And/Or Fever Pregabalin [Lyrica 150Mg] 150 mg PO BID Minocycline [Minocycline 100MG Cap] 100 mg PO BID Metronidazole/Skin Cleansr #23 [[place] 0.75% Gel Kit] 1 each TP BID Zolpidem Tartrate [Ambien] 5 mg PO HS Cephalexin Mh 500 mg [Keflex 500 mg] 500 mg PO TID Prednisone 10 mg [Deltasone 10 mg] 20 mg PO DAILY Additional Instructions: Please take your home medications as prescribed and fill your prescription and take as directed. Follow up with your family doctor in a week. If your are having a medical emergency please go to the ER
[2016-12-03] MEDS ORDERED: Aplisol ID SCH (10:00)
== END 2016-11-26 11:00 | disposition home or self-care (01) | DRG 194 ==
LOC: MED SURG 15:30 → UNDOADMIN 15:37 → MED SURG 15:37
PROVIDERS: ADMIT Family Medicine; ATTEND Family Medicine
DX: J10.1 Influenza due to other identified influenza virus with other respiratory manifestations (principal); J44.1 Chronic obstructive pulmonary disease with (acute) exacerbation; Z79.899 Other long term (current) drug therapy
CPT/HCPCS: 82962; 94640; 94760; J2405; J2930; A9270-GY; J7506

== ENCOUNTER 2017-01-19 16:45 | Emergency (ER) | payer MEDICARE ==
[2017-01-19] MEDS ORDERED: DUONEB 0.5-3 MG/3 ml Neb IH ONE ×2 (17:02→17:08)
--- NOTE | 2017-01-19 17:07 | ERPHSYRPT ---
- History of Present Illness Time Seen by Provider: 01/19/17 16:55 Source: patient Patient Subjective Stated Complaint: cough for 2 days Triage Nursing Assessment: productive cough for 2 days. clear nasal drainage. no fever. cough noted during triage. skin warm and dry. insomnia due to coughing Physician History: CC: cough Hx: 71 y/o patient of Dr Lane. He has second hand smoke exposure. He has cough , congestion. No fever or chills. Finished keflex recently. He has worsened cough over 2 days so came to ER. Symptoms mild to moderate. Severity of Dyspnea-Max: moderate Severity of Dyspnea-Current: moderate Allergies/Adverse Reactions: Iodinated Contrast Media - Oral and [IV Dye, Iodine Containing Contrast ] Allergy (Mild, Verified 01/19/17 16:55) Hives Penicillins Allergy (Mild, Verified 01/19/17 16:55) Hives Home Medications: Hydrocodone Bit/Acetaminophen [[place] 10-325 Tablet] 1 each PO TID PRN 05/20/14 [ History] Pregabalin [Lyrica 150Mg] 150 mg PO BID 06/25/16 [History] Metronidazole/Skin Cleansr #23 [[place] 0.75% Gel Kit] 1 each TP BID 08/26/16 [ History] Zolpidem Tartrate [Ambien] 5 mg PO HS 11/17/16 [History] Buspirone HCl [Buspar] 10 mg PO BID 01/19/17 [History] Cephalexin Monohydrate [Cephalexin] 500 mg PO TID 01/19/17 [History] Hx Tetanus, Diphtheria Vaccination/Date Given: Yes Hx Influenza Vaccination/Date Given: Yes Hx Pneumococcal Vaccination/Date Given: No Immunizations Up to Date: Yes - Review of Systems Constitutional: No Fever, No Chills Eyes: No Symptoms Ears, Nose, & Throat: Nose Congestion Respiratory: Cough, Wheezing Cardiac: No Chest Pain Abdominal/Gastrointestinal: No Abdominal Pain, No Nausea, No Vomiting Skin: No Rash Neurological: No Headache All Other Systems: Reviewed and Negative - Past Medical History Pertinent Past Medical History: Yes Neurological History: No Pertinent History ENT History: Glaucoma Cardiac History: Angina, Other Respiratory History: No Pertinent History Endocrine Medical History: No Pertinent History Musculoskeletal History: Arthritis GI Medical History: GERD, Hernia, Polyps, Other History: No Pertinent History Psycho-Social History: Anxiety, Depression Male Reproductive Disorders: No Pertinent History Other Medical History: heart cath - Past Surgical History Past Surgical History: Yes Neuro Surgical History: No Pertinent History Cardiac: Cardiac Catheterization Respiratory: No Pertinent History Gastrointestinal: Colon Resection, Hernia Repair Genitourinary: No Pertinent History Musculoskeletal: Orthopedic Surgery Male Surgical History: No Pertinent History Other Surgical History: Pt had major facial reconstruction; also colon resection for obstruction by polyps, shoulder surgery; Right thumb was surgically reattached after it was accidentally severed. - Social History Smoking Status: Never smoker Exposure to second hand smoke: Yes Drug Use: none Patient Lives Alone: No - Nursing Vital Signs Nursing Vital Signs: Initial Vital Signs Temperature 98.1 F Temperature Source Oral Pulse Rate 80 Respiratory Rate 20 Blood Pressure [Right Arm] 143/88 Pain Intensity 0 - Physical Exam General Appearance: alert Eye Exam: PERRL/EOMI Neck Exam: normal inspection, non-tender, supple Respiratory Exam: wheezing, other (+ cough), No respiratory distress Cardiovascular/Chest Exam: regular rate/rhythm Abdominal/Gastrointestinal Exam: soft, No tenderness Extremity Exam: non-tender, normal range of motion Neurologic Exam: alert, oriented x 3, cooperative Skin Exam: warm, dry, No rash SpO2 Interpretation: normal SpO2: 98 Oxygen Delivery: Room Air - Course Nursing assessment & vital signs reviewed: Yes Ordered Tests: Active Orders 24 hr Category Date Time Status Respiratory Nebulizer STAT RT 01/19/17 17:02 Active Medication Summary Generic Name Dose Route Start Last Admin Trade Name Freq PRN Reason Stop Dose Admin Albuterol/Ipratropium 3 ml 01/19/17 17:02 Duoneb 0.5-3 Mg/3 Ml Neb IH 01/19/17 17:03 STAT ONE - Progress Progress Note: 01/19/17 17:05 Some wheezing. Normal vitals. Rx for asthmatic bronchitis with albuterol, prednisone, doxycycline. Counseled pt/family regarding: diagnosis, need for follow-up - Departure Time of Disposition: 17:06 Departure Disposition: Home Clinical Impression: Acute asthmatic bronchitis Condition: Stable Critical Care Time: No Referrals: GABBY LANE MD [Primary Care Provider] - Instructions: Cough -- Adult, Bronchitis Additional Instructions: UPPER RESPIRATORY INFECTIONS 1. The signs and symptoms of a cold may last up to 10 days. These illnesses are due to viruses which are not treatable with antibiotics. 2. The following suggestions can aid in recovery and to minimize symptoms: A. Increase fluid intake. B. Acetaminophen or Ibuprofen as directed. C. Avoid smoking environments as this will increase the risk of developing pneumonia. D. For children, may use a cool mist vaporizer in the child's room. 3. Contact your Family Physician if you note: A. Persisten fever >103 for more than 3 days B. Breathing difficulty C. Productive cough of yellow/green sputum D. Illness greater than 7 days E. Persistent vomiting F. Stiff neck Rx doxycycline. Rx prednisone. Rx albuterol MDI. Prescriptions: Albuterol Sulfate [Albuterol Sulfate Hfa] 2 puff IH Q4-6HPRN PRN #1 [id number] PRN Reason: cough or wheeze Doxycycline Hyclate 100 mg [Vibramycin 100 MG] 1 tab PO BID #20 tab Prednisone 20 mg [Deltasone 20 mg] 2 tab PO DAILY #10 tablet
[2017-01-19 17:24] VITALS: BP 122/77
[2017-01-19 17:29] VITALS: PULSE 84; O2SAT 96
== END 2017-01-19 17:24 | disposition home or self-care (01) ==
LOC: ED 16:45
DX: J45.909 Unspecified asthma, uncomplicated (principal)
CPT/HCPCS: 94640; 99283; A9270-GY

== ENCOUNTER 2017-04-08 13:41 | Emergency (ER) | payer MEDICARE ==
--- NOTE | 2017-04-08 14:36 | ERPHSYRPT ---
- History of Present Illness Time Seen by Provider: 04/08/17 14:31 Source: patient Exam Limitations: no limitations Patient Subjective Stated Complaint: chest pain, numbness to face and arms Triage Nursing Assessment: to room per w/c, skin w/d, color normal, resp nonlabored. patient presented to pt today and told staff he was having symptoms. pt staff brought patient to er Physician History: The patient is a 71-year-old male who complains that 2 days ago on Friday he had numbness that went across his chest and numbness in his face and arms all the way down to his hands. He also had difficulty swallowing and speaking. He noticed she had saliva drooling from the corner of his mouth. He thought it would get better yesterday. Yesterday and today he still was having trouble having full strength in both hands. He says he is speaking better now and is not drooling. He was in physical therapy this morning for therapy on his right shoulder. He told them about this issue and they told him to come in. He denies any pain. He denies shortness of breath. His past medical history is significant for GERD. He's had shoulder surgery and nose surgery. Timing/Duration: day(s) (2) Severity: moderate Modifying Factors: Improves With: nothing Associated Symptoms: other Allergies/Adverse Reactions: Iodinated Contrast- Oral and IV Dye [IV Dye, Iodine Containing Contrast ] Allergy (Mild, Verified 04/08/17 13:56) Hives Penicillins Allergy (Mild, Verified 04/08/17 13:56) Hives Home Medications: Hydrocodone Bit/Acetaminophen [[place] 10-325 Tablet] 1 each PO TID PRN 05/20/14 [ History] Pregabalin [Lyrica 150Mg] 150 mg PO BID 06/25/16 [History] Metronidazole/Skin Cleansr #23 [[place] 0.75% Gel Kit] 1 each TP BID 08/26/16 [ History] Zolpidem Tartrate [Ambien] 5 mg PO HS 11/17/16 [History] Buspirone HCl [Buspar] 10 mg PO BID 01/19/17 [History] Omeprazole 20 MG [Prilosec 20 mg] 20 mg PO DAILY 04/08/17 [History] Hx Tetanus, Diphtheria Vaccination/Date Given: Yes Hx Influenza Vaccination/Date Given: Yes Hx Pneumococcal Vaccination/Date Given: No - Review of Systems Constitutional: Weakness Eyes: No Symptoms Ears, Nose, & Throat: No Symptoms Respiratory: No Cough, No Dyspnea Cardiac: No Chest Pain, No Edema, No Syncope Abdominal/Gastrointestinal: No Abdominal Pain, No Nausea, No Vomiting, No Diarrhea Genitourinary Symptoms: No Dysuria Musculoskeletal: No Back Pain, No Neck Pain Skin: No Rash Neurological: Other (numbness) Psychological: No Symptoms Endocrine: No Symptoms Hematologic/Lymphatic: No Symptoms Immunological/Allergic: No Symptoms All Other Systems: Reviewed and Negative - Past Medical History Pertinent Past Medical History: Yes Neurological History: No Pertinent History ENT History: Glaucoma Cardiac History: Angina, Other Respiratory History: Asthma, Bronchitis Endocrine Medical History: No Pertinent History Musculoskeletal History: Arthritis GI Medical History: GERD, Hernia, Polyps, Other History: No Pertinent History Psycho-Social History: Anxiety, Depression Male Reproductive Disorders: No Pertinent History Other Medical History: heart cath - Past Surgical History Past Surgical History: Yes Neuro Surgical History: No Pertinent History Cardiac: Cardiac Catheterization Respiratory: No Pertinent History Gastrointestinal: Colon Resection, Hernia Repair Genitourinary: No Pertinent History Musculoskeletal: Orthopedic Surgery Male Surgical History: No Pertinent History Other Surgical History: Pt had major facial reconstruction; also colon resection for obstruction by polyps, shoulder surgery; Right thumb was surgically reattached after it was accidentally severed. - Social History Smoking Status: Never smoker Exposure to second hand smoke: Yes Drug Use: none Patient Lives Alone: No - Nursing Vital Signs Nursing Vital Signs: Initial Vital Signs Temperature 97.7 F 04/08/17 13:47 Pulse Rate 63 04/08/17 13:47 Respiratory Rate 18 04/08/17 13:47 Blood Pressure 127/90 04/08/17 13:47 O2 Sat by Pulse Oximetry 95 04/08/17 13:47 Pain Scale Pain Intensity 9 - Physical Exam General Appearance: no apparent distress, alert Eye Exam: PERRL/EOMI, eyes nml inspection Ears, Nose, Throat Exam: normal ENT inspection, TMs normal, pharynx normal, moist mucous membranes Neck Exam: normal inspection, non-tender, supple, full range of motion Respiratory Exam: normal breath sounds, lungs clear, No respiratory distress Cardiovascular Exam: regular rate/rhythm, normal heart sounds, normal peripheral pulses Gastrointestinal/Abdomen Exam: soft, normal bowel sounds, No tenderness, No mass Rectal Exam: not done Back Exam: normal inspection, normal range of motion, No CVA tenderness, No vertebral tenderness Extremity Exam: normal inspection, normal range of motion, pelvis stable Neurologic Exam: alert, oriented x 3, cooperative, culinary assistant II-XII nml as tested, normal mood/affect, sensation nml, No motor deficits, No sensory deficit, No facial droop, No slurred speech, No abnormal cerebellar tests, No abnormal culinary assistant II-XII Skin Exam: normal color, warm, dry, No rash Lymphatic Exam: No adenopathy SpO2 Interpretation: normal SpO2: 95 Oxygen Delivery: Room Air - Course EKG Interpreted by Me: RATE, Sinus Rhythm, NORMAL AXIS, NORMAL INTERVALS, NORMAL QRS, NORMAL ST-T, Other (no change comp to EKG 11/17/16.) - Radiology Exams Chest X-ray Interpretation: Teleradiologist Report (no new acute findings per Dr Caecres) - CT Exams Head CT Interpretation: Tele-radiologist Report (stable rilght external capsule lacunar infarct. no new/acute intracranial abnormalities. per Dr Caceres.) Ordered Tests: Active Orders 24 hr Category Date Time Status EKG-ER Only STAT Care 04/08/17 14:37 Active IV Insertion STAT Care 04/08/17 14:37 Active CHEST 2 VIEWS (PA AND LAT) Stat Exams 04/08/17 14:38 Completed HEAD WITHOUT CONTRAST [CT] Stat Exams 04/08/17 14:38 Completed CBC W DIFF Stat Lab 04/08/17 14:55 Completed CMP Stat Lab 04/08/17 14:55 Completed PROTIME WITH INR Stat Lab 04/08/17 14:55 Completed TROPONIN Q3H Lab 04/08/17 14:35 Completed TROPONIN Q3H Lab 04/08/17 18:30 Ordered TROPONIN Q3H Lab 04/08/17 21:30 Ordered UA W/RFX UR CULTURE Stat Lab 04/08/17 16:15 Completed Lab/Rad Data: Laboratory Result Diagrams 04/08/17 14:55 04/08/17 14:55 Laboratory Results 04/08/17 04/08/17 04/08/17 Range/Units 16:15 14:55 14:55 WBC (4.0-10.5) K/mm3 RBC (4.1-5.6) M/mm3 Hgb (12.5-18.0) gm/dl Hct (42-50) % MCV (78-100) fl MCH (26-32) pg MCHC (32-36) g/dl RDW (11.5-14.0) % Plt Count (150-450) K/mm3 MPV (6-9.5) fl Gran % (36.0-66.0) % Lymphocytes % (24.0-44.0) % Monocytes % (0.0-12.0) % Eosinophils % (0.00-5.0) % Basophils % (0.0-0.4) % Basophils # (0-0.4) INR 1.02 (0.8-3.0) Sodium 140 (136-145) mEq/L Potassium 3.6 (3.5-5.1) mEq/L Chloride 107 (98-107) mEq/L Carbon Dioxide 23.7 (21-32) mEq/L Anion Gap 13.1 (5-15) MEQ/L BUN 9 (9-20) mg/dL Creatinine 1.25 (0.55-1.30) mg/dl Estimated GFR > 60 ML/MIN Glucose 151 H (70-110) MG/DL Calcium 8.5 (8.5-10.1) mg/dL Total Bilirubin 0.60 (0.2-1.0) mg/dL AST 31 (15-37) U/L ALT 51 (12-78) U/L Alkaline Phosphatase 112 (46-116) U/L Troponin I (0.000-0.056) ng/ml Serum Total Protein 6.7 (6.4-8.2) gm/dL Albumin 3.7 (3.4-5.0) g/dL Ur Collection Type CCMS Urine Color YELLOW (YELLOW) Urine Appearance CLEAR (CLEAR) Urine pH 6.0 (5-6) Ur Specific [place] 1.015 (1.005-1.025) Urine Protein NEGATIVE (Negative) Urine Ketones NEGATIVE (NEGATIVE) Urine Blood NEGATIVE (0-5) Jose/ul Urine Nitrite NEGATIVE (NEGATIVE) Urine Bilirubin NEGATIVE (NEGATIVE) Urine Urobilinogen 1 (0-1) mg/dL Ur Leukocyte Esterase NEGATIVE (NEGATIVE) Urine Glucose NEGATIVE (NEGATIVE) mg/dL Specimen Received 04-08-17 1619 08/08/17 08/08/17 Range/Units 14:55 14:35 WBC 5.2 (4.0-10.5) K/mm3 RBC 5.27 (4.1-5.6) M/mm3 Hgb 16.2 (12.5-18.0) gm/dl Hct 46.5 (42-50) % MCV 88.2 (78-100) fl MCH 30.7 (26-32) pg MCHC 34.8 (32-36) g/dl RDW 13.0 (11.5-14.0) % Plt Count 142 L (150-450) K/mm3 MPV 11.9 H (6-9.5) fl Gran % 67.2 H (36.0-66.0) % Lymphocytes % 21.5 L (24.0-44.0) % Monocytes % 9.2 (0.0-12.0) % Eosinophils % 1.7 (0.00-5.0) % Basophils % 0.4 (0.0-0.4) % Basophils # 0.02 (0-0.4) INR (0.8-3.0) Sodium (136-145) mEq/L Potassium (3.5-5.1) mEq/L Chloride (98-107) mEq/L Carbon Dioxide (21-32) mEq/L Anion Gap (5-15) MEQ/L BUN (9-20) mg/dL Creatinine (0.55-1.30) mg/dl Estimated GFR ML/MIN Glucose (70-110) MG/DL Calcium (8.5-10.1) mg/dL Total Bilirubin (0.2-1.0) mg/dL AST (15-37) U/L ALT (12-78) U/L Alkaline Phosphatase (46-116) U/L Troponin I < 0.017 (0.000-0.056) ng/ml Serum Total Protein (6.4-8.2) gm/dL Albumin (3.4-5.0) g/dL Ur Collection Type Urine Color (YELLOW) Urine Appearance (CLEAR) Urine pH (5-6) Ur Specific [place] (1.005-1.025) Urine Protein (Negative) Urine Ketones (NEGATIVE) Urine Blood (0-5) Jose/ul Urine Nitrite (NEGATIVE) Urine Bilirubin (NEGATIVE) Urine Urobilinogen (0-1) mg/dL Ur Leukocyte Esterase (NEGATIVE) Urine Glucose (NEGATIVE) mg/dL Specimen Received - Progress Progress: improved Counseled pt/family regarding: lab results, diagnosis, need for follow-up, rad results - Departure Time of Disposition: 16:46 Departure Disposition: Home Clinical Impression: Paresthesia Condition: Stable Critical Care Time: No Additional Instructions: You have temporary paresthesia. You were given 324 mg of aspirin in the ER. All labs were normal. The head CT did not show anything acute. The chest x- ray was negative. Continue to take an 81 mg aspirin daily. Follow-up if the condition returns.
[2017-04-08 15:00] LABS: BASOPHIL % 0.4 % (0.0-0.4); Eosinophil % 1.7 % (0.00-5.0); Granulocytes % 67.2 % (36.0-66.0); INR 1.02 (0.8-3.0); Lymphocytes % 21.5 % (24.0-44.0); Mean Cell Volume 88.2 fl (78-100); Mean Corpuscular Hemoglobin 30.7 pg (26-32); Mean Platelet Volume 11.9 fl (6-9.5); Monocytes % 9.2 % (0.0-12.0); PROTIME 11.5 SECONDS (8.83-12.87); Platelet Count 142 K/mm3 (150-450); Red Blood Count 5.27 M/mm3 (4.1-5.6); White Blood Count 5.2 K/mm3 (4.0-10.5)
[2017-04-08 15:15] LABS: ALBUMIN 3.7 g/dL (3.4-5.0); ALKALINE PHOSPHATASE 112 U/L (46-116); ANION GAP 13.1 MEQ/L (5-15); BLOOD UREA NITROGEN 9 mg/dL (9-20); CHLORIDE 107 mEq/L (98-107); Carbon Dioxide 23.7 mEq/L (21-32); Glucose 151 MG/DL (70-110); Potassium 3.6 mEq/L (3.5-5.1); SGOT/AST 31 U/L (15-37); SGPT/ALT 51 U/L (12-78); SODIUM 140 mEq/L (136-145); Total Protein 6.7 gm/dL (6.4-8.2)
--- NOTE | 2017-04-08 15:22 | XRAY ---
Indication: Headache and numbness. Right facial drooping. Multiple contiguous axial images obtained through the head without contrast. Comparison: August 06, 2014. Again no acute intracranial hemorrhage, abnormal extra axial fluid collection, or mass effect. Stable right external capsule remote lacunar infarct. Stephenson-white matter differentiation maintained. Fourth ventricle is midline without hydrocephalus. Bony calvarium intact. There is now complete opacification of the right frontal sinus and mild mucosal thickening of both ethmoid sinuses. Mastoid air cells are clear. Impression: Stable right external capsule lacunar infarct. No new/acute intracranial abnormalities. New paranasal sinus disease. CT DI 66.59
--- NOTE | 2017-04-08 15:23 | XRAY ---
Indication: Weakness. Comparison: November 22, 2016. PA/lateral chest again demonstrates minimal left base atelectasis/scarring and a few incidental scattered calcified granulomas. Remaining heart and lungs unremarkable. No new/acute findings.
[2017-04-08 16:15] VITALS: O2SAT 95
[2017-04-08 16:19] LABS: Collection Type CCMS
[2017-04-08 16:20] LABS: ADD URINE CULTURE? NO (NO); Bilirubin NEGATIVE (NEGATIVE); Blood NEGATIVE Ery/ul (0-5); COMPLETE URINE MICROSCOPIC? NO; Glucose NEGATIVE (NEGATIVE); Leukocyte Esterase NEGATIVE (NEGATIVE)
[2017-04-08 16:58] VITALS: BP 113/70; PULSE 53
== END 2017-04-08 17:05 | disposition home or self-care (01) ==
LOC: ED 13:41
DX: R20.9 Unspecified disturbances of skin sensation (principal); R07.89 Other chest pain; Z79.899 Other long term (current) drug therapy; Z79.891 Long term (current) use of opiate analgesic
CPT/HCPCS: 36000; 36415; 70450; 71020; 80053; 81002; 84484; 85025; 85610; 93005; 99284; 99285

== ENCOUNTER 2017-10-04 21:25 | Emergency (ER) | payer MEDICARE ==
[2017-10-04] MEDS ORDERED: Sodium Chloride 0.9% 1000 ML 1,000 ML IV STA (22:33)
[2017-10-04] MEDS ORDERED: DUONEB 0.5-3 MG/3 ml Neb IH ONE ×2 (22:36→22:51)
--- NOTE | 2017-10-04 22:36 | ERPHSYRPT ---
- History of Present Illness Time Seen by Provider: 10/04/17 22:20 Source: patient Patient Subjective Stated Complaint: Pt states "I went a couple of weeks ago to [facility] and they put me on an antibiotic, I finished that and am not any better. I am having a hard time breathing today and been having chills." Triage Nursing Assessment: Pt alert and oriented X 3, skin pwd. pt ambulates without difficutly, able to speak in clear full sentences. pt tachypnic, Physician History: PATIENT COMPLAINS OF A PRODUCTIVE COUGH X 2-3 WEEKS, FEVER, ONSET OF EMESIS 3 TIMES DAILY X 4 DAYS ASSOCIATED WITH PERIUMBILICAL ABDOMINAL PAINS. DENIES URINARY SYMPTOMS OR DIARRHEA. Timing/Duration: week(s) Severity: moderate Associated Symptoms: vomiting, cough, malaise Allergies/Adverse Reactions: Iodinated Contrast- Oral and IV Dye [IV Dye, Iodine Containing Contrast ] Allergy (Mild, Verified 04/08/17 13:56) Hives Penicillins Allergy (Mild, Verified 04/08/17 13:56) Hives Home Medications: Pregabalin [Lyrica 150Mg] 150 mg PO BID 06/25/16 [History] Metronidazole/Skin Cleanser 23 [Rosadan 0.75% Gel Kit] 1 each TP BID 08/26/16 [ History] Zolpidem Tartrate [Ambien] 5 mg PO HS 11/17/16 [History] Buspirone HCl [Buspar] 10 mg PO BID 01/19/17 [History] Omeprazole 20 MG [Prilosec 20 mg] 20 mg PO DAILY 04/08/17 [History] Clindamycin HCl [Clindamycin HCl] 300 mg PO DAILY 10/04/17 [History] Oxycodone HCl [Oxycodone HCl] 5 mg PO HS 10/04/17 [History] Oxycodone Myristate [Xtampza ER] 13.5 mg PO DAILY 10/04/17 [History] Hx Tetanus, Diphtheria Vaccination/Date Given: Yes Hx Influenza Vaccination/Date Given: Yes Hx Pneumococcal Vaccination/Date Given: Yes Immunizations Up to Date: Yes - Review of Systems Constitutional: Fever, No Chills Eyes: No Symptoms Ears, Nose, & Throat: No Symptoms Respiratory: Cough, No Dyspnea Cardiac: No Symptoms, No Chest Pain, No Edema, No Syncope Abdominal/Gastrointestinal: Abdominal Pain, Nausea, Vomiting, No Diarrhea Genitourinary Symptoms: No Dysuria Musculoskeletal: No Symptoms, No Back Pain, No Neck Pain Skin: No Rash Neurological: No Dizziness, No Focal Weakness, No Sensory Changes Psychological: No Symptoms Endocrine: No Symptoms All Other Systems: Reviewed and Negative - Past Medical History Pertinent Past Medical History: Yes Neurological History: No Pertinent History ENT History: Glaucoma Cardiac History: Angina, Other Respiratory History: Asthma, Bronchitis Endocrine Medical History: No Pertinent History Musculoskeletal History: Arthritis GI Medical History: GERD, Hernia, Polyps, Other History: No Pertinent History Psycho-Social History: Anxiety, Depression Male Reproductive Disorders: No Pertinent History Other Medical History: heart cath - Past Surgical History Past Surgical History: Yes Neuro Surgical History: No Pertinent History Cardiac: Cardiac Catheterization Respiratory: No Pertinent History Gastrointestinal: Colon Resection, Hernia Repair Genitourinary: No Pertinent History Musculoskeletal: Orthopedic Surgery Male Surgical History: No Pertinent History Other Surgical History: Pt had major facial reconstruction; also colon resection for obstruction by polyps, shoulder surgery; Right thumb was surgically reattached after it was accidentally severed. right shoulder surgery (2017) - Social History Smoking Status: Never smoker Exposure to second hand smoke: Yes Drug Use: none Patient Lives Alone: No - Nursing Vital Signs Nursing Vital Signs: Initial Vital Signs Temperature 99.8 F 10/04/17 22:07 Pulse Rate 102 H 10/04/17 22:07 Respiratory Rate 22 10/04/17 22:07 Blood Pressure 138/89 10/04/17 22:07 O2 Sat by Pulse Oximetry 92 L 10/04/17 22:07 Pain Scale Pain Intensity 0 - Physical Exam General Appearance: no apparent distress, alert Eye Exam: PERRL/EOMI, eyes nml inspection Ears, Nose, Throat Exam: normal ENT inspection, TMs normal, pharynx normal, moist mucous membranes Neck Exam: normal inspection, non-tender, supple, full range of motion Respiratory Exam: normal breath sounds, lungs clear, No respiratory distress Cardiovascular Exam: regular rate/rhythm, normal heart sounds, normal peripheral pulses Gastrointestinal/Abdomen Exam: soft, normal bowel sounds, tenderness ( PERIUMBILICAL AND LEFT LOWER QUAD TENDERNESS), No mass Back Exam: normal inspection, normal range of motion, No CVA tenderness, No vertebral tenderness Extremity Exam: normal inspection, normal range of motion, pelvis stable Neurologic Exam: alert, oriented x 3, cooperative, normal mood/affect, nml cerebellar function, nml station & gait, sensation nml, No motor deficits Skin Exam: normal color, warm, dry, No rash Lymphatic Exam: No adenopathy SpO2 Interpretation: borderline oxygenation SpO2: 92 Oxygen Delivery: Room Air - Course EKG Interpreted by Me: RATE, Sinus Rhythm, NORMAL AXIS - CT Exams Abdomen/Pelvis CT Interpretation: Normal Appendix (NO ACUTE FINDINGS EXCEPT FOR SLUDGE IN GALLBLADDER, NO CALIFIED STONES) Ordered Tests: Active Orders 24 hr Category Date Time Status EKG-ER Only STAT Care 10/04/17 22:33 Active Oxygen-ED Only NASAL CANNULA 2 lpm Care 10/04/17 22:33 Active ABDOMEN AND PELVIS W/0 CONTRAS [CT] Stat Exams 10/04/17 22:39 Taken CHEST 1 VIEW (PORTABLE) Stat Exams 10/04/17 22:33 Taken AMYLASE Stat Lab 10/04/17 22:35 Completed BLOOD CULTURE Stat Lab 10/04/17 22:55 Received CBC W DIFF Stat Lab 10/04/17 22:35 Completed CMP Stat Lab 10/04/17 22:35 Completed LIPASE Stat Lab 10/04/17 22:35 Completed NT PRO BNP Stat Lab 10/04/17 22:35 Completed PROTIME WITH INR Stat Lab 10/04/17 22:35 Completed TROPONIN Q3H Lab 10/04/17 22:35 Completed TROPONIN Q3H Lab 10/05/17 01:45 Ordered TROPONIN Q3H Lab 10/05/17 04:45 Ordered TROPONIN Q3H Lab 10/05/17 07:45 Ordered TROPONIN Q3H Lab 10/05/17 10:45 Ordered UA W/RFX UR CULTURE Stat Lab 10/04/17 22:35 Completed Respiratory Nebulizer STAT RT 10/04/17 22:36 Completed Medication Summary Generic Name Dose Route Start Last Admin Trade Name Freq PRN Reason Stop Dose Admin Levofloxacin/Dextrose 500 mg in 100 mls @ 100 mls/hr 10/05/17 00:25 10/05/17 00:27 Levofloxacin 500mg/100ml D5w IV 10/05/17 01:24 100 mls/hr STAT STA Administration Discontinued Medications Generic Name Dose Route Start Last Admin Trade Name Freq PRN Reason Stop Dose Admin Albuterol/Ipratropium 3 ml 10/04/17 22:36 10/04/17 22:54 Duoneb 0.5-3 Mg/3 Ml Neb IH 10/04/17 22:37 3 ml STAT ONE Administration Albuterol/Ipratropium Confirm 10/04/17 22:51 Duoneb 0.5-3 Mg/3 Ml Neb Administered 10/04/17 22:52 Dose 3 ml IH .STK-MED ONE Sodium Chloride 1,000 mls @ 999 mls/hr 10/04/17 22:33 10/04/17 22:38 Sodium Chloride 0.9% 1000 Ml IV 10/04/17 23:33 999 mls/hr .Q1H1M STA Administration Sodium Chloride Confirm 10/04/17 22:38 Sodium Chloride 0.9% 1000 Ml Administered 10/04/17 22:39 Dose 1,000 mls @ ud .ROUTE .STK-MED ONE Levofloxacin/Dextrose Confirm 10/05/17 00:26 Levofloxacin 500mg/100ml D5w Administered 10/05/17 00:27 Dose 500 mg in 100 mls @ ud IV .STK-MED ONE Lab/Rad Data: Laboratory Result Diagrams 10/04/17 22:35 10/04/17 22:35 Laboratory Results 10/04/17 10/04/17 10/04/17 Range/Units 22:55 22:35 22:35 WBC (4.0-10.5) K/mm3 RBC (4.1-5.6) M/mm3 Hgb (12.5-18.0) gm/dl Hct (42-50) % MCV (78-100) fl MCH (26-32) pg MCHC (32-36) g/dl RDW (11.5-14.0) % Plt Count (150-450) K/mm3 MPV (6-9.5) fl Gran % (36.0-66.0) % Lymphocytes % (24.0-44.0) % Monocytes % (0.0-12.0) % Eosinophils % (0.00-5.0) % Basophils % (0.0-0.4) % Basophils # (0-0.4) INR (0.8-3.0) Sodium (136-145) mEq/L Potassium (3.5-5.1) mEq/L Chloride (98-107) mEq/L Carbon Dioxide (21-32) mEq/L Anion Gap (5-15) MEQ/L BUN (9-20) mg/dL Creatinine (0.55-1.30) mg/dl Estimated GFR ML/MIN Glucose (70-110) MG/DL Calcium (8.5-10.1) mg/dL Total Bilirubin (0.2-1.0) mg/dL AST (15-37) U/L ALT (12-78) U/L Alkaline Phosphatase (46-116) U/L Troponin I (0.000-0.056) ng/ml NT-Pro-B Natriuret Pep (0-125) pg/ml Serum Total Protein (6.4-8.2) gm/dL Albumin (3.4-5.0) g/dL Amylase 49 (25-115) U/L Lipase 107 (73-393) U/L Ur Collection Type CLEAN CATCH Urine Color YELLOW (YELLOW) Urine Appearance CLEAR (CLEAR) Urine pH 6.5 (5-6) Ur Specific [place] 1.010 (1.005-1.025) Urine Protein NEGATIVE (Negative) Urine Ketones NEGATIVE (NEGATIVE) Urine Blood NEGATIVE (0-5) Jose/ul Urine Nitrite NEGATIVE (NEGATIVE) Urine Bilirubin NEGATIVE (NEGATIVE) Urine Urobilinogen 1 (0-1) mg/dL Ur Leukocyte Esterase NEGATIVE (NEGATIVE) Urine Culture Reflexed NO (NO) Urine Glucose 50 (NEGATIVE) mg/dL Influenza Type A Ag NEGATIVE (NEGATIVE) Influenza Type B Ag NEGATIVE (NEGATIVE) RSV (PCR) NEGATIVE (Negative) Specimen Received 10/04/17 2300 10/04/17 10/04/17 10/04/17 Range/Units 22:35 22:35 22:35 WBC (4.0-10.5) K/mm3 RBC (4.1-5.6) M/mm3 Hgb (12.5-18.0) gm/dl Hct (42-50) % MCV (78-100) fl MCH (26-32) pg MCHC (32-36) g/dl RDW (11.5-14.0) % Plt Count (150-450) K/mm3 MPV (6-9.5) fl Gran % (36.0-66.0) % Lymphocytes % (24.0-44.0) % Monocytes % (0.0-12.0) % Eosinophils % (0.00-5.0) % Basophils % (0.0-0.4) % Basophils # (0-0.4) INR 1.25 (0.8-3.0) Sodium 132 L (136-145) mEq/L Potassium 3.5 (3.5-5.1) mEq/L Chloride 101 (98-107) mEq/L Carbon Dioxide 23.3 (21-32) mEq/L Anion Gap 11.0 (5-15) MEQ/L BUN 8 L (9-20) mg/dL Creatinine 1.17 (0.55-1.30) mg/dl Estimated GFR > 60 ML/MIN Glucose 127 H (70-110) MG/DL Calcium 8.6 (8.5-10.1) mg/dL Total Bilirubin 1.40 H (0.2-1.0) mg/dL AST 29 (15-37) U/L ALT 35 (12-78) U/L Alkaline Phosphatase 117 H (46-116) U/L Troponin I < 0.017 (0.000-0.056) ng/ml NT-Pro-B Natriuret Pep 165 H (0-125) pg/ml Serum Total Protein 7.1 (6.4-8.2) gm/dL Albumin 3.8 (3.4-5.0) g/dL Amylase (25-115) U/L Lipase (73-393) U/L Ur Collection Type Urine Color (YELLOW) Urine Appearance (CLEAR) Urine pH (5-6) Ur Specific [place] (1.005-1.025) Urine Protein (Negative) Urine Ketones (NEGATIVE) Urine Blood (0-5) Jose/ul Urine Nitrite (NEGATIVE) Urine Bilirubin (NEGATIVE) Urine Urobilinogen (0-1) mg/dL Ur Leukocyte Esterase (NEGATIVE) Urine Culture Reflexed (NO) Urine Glucose (NEGATIVE) mg/dL Influenza Type A Ag (NEGATIVE) Influenza Type B Ag (NEGATIVE) RSV (PCR) (Negative) Specimen Received 10/04/17 Range/Units 22:35 WBC 9.8 (4.0-10.5) K/mm3 RBC 5.00 (4.1-5.6) M/mm3 Hgb 15.3 (12.5-18.0) gm/dl Hct 43.5 (42-50) % MCV 87.0 (78-100) fl MCH 30.6 (26-32) pg MCHC 35.2 (32-36) g/dl RDW 12.7 (11.5-14.0) % Plt Count 134 L (150-450) K/mm3 MPV 11.8 H (6-9.5) fl Gran % 81.4 H (36.0-66.0) % Lymphocytes % 7.7 L (24.0-44.0) % Monocytes % 10.5 (0.0-12.0) % Eosinophils % 0.3 (0.00-5.0) % Basophils % 0.1 (0.0-0.4) % Basophils # 0.01 (0-0.4) INR (0.8-3.0) Sodium (136-145) mEq/L Potassium (3.5-5.1) mEq/L Chloride (98-107) mEq/L Carbon Dioxide (21-32) mEq/L Anion Gap (5-15) MEQ/L BUN (9-20) mg/dL Creatinine (0.55-1.30) mg/dl Estimated GFR ML/MIN Glucose (70-110) MG/DL Calcium (8.5-10.1) mg/dL Total Bilirubin (0.2-1.0) mg/dL AST (15-37) U/L ALT (12-78) U/L Alkaline Phosphatase (46-116) U/L Troponin I (0.000-0.056) ng/ml NT-Pro-B Natriuret Pep (0-125) pg/ml Serum Total Protein (6.4-8.2) gm/dL Albumin (3.4-5.0) g/dL Amylase (25-115) U/L Lipase (73-393) U/L Ur Collection Type Urine Color (YELLOW) Urine Appearance (CLEAR) Urine pH (5-6) Ur Specific [place] (1.005-1.025) Urine Protein (Negative) Urine Ketones (NEGATIVE) Urine Blood (0-5) Jose/ul Urine Nitrite (NEGATIVE) Urine Bilirubin (NEGATIVE) Urine Urobilinogen (0-1) mg/dL Ur Leukocyte Esterase (NEGATIVE) Urine Culture Reflexed (NO) Urine Glucose (NEGATIVE) mg/dL Influenza Type A Ag (NEGATIVE) Influenza Type B Ag (NEGATIVE) RSV (PCR) (Negative) Specimen Received - Progress Progress: improved Progress Note: 10/05/17 01:11 IV NORMAL SALINE 500MG/HR, AFTER 2 SETS OF BLOOD CULTURES LEVAQUIN 500MG IVPB Counseled pt/family regarding: lab results, diagnosis, need for follow-up, rad results - Departure Time of Disposition: 01:15 Departure Disposition: Home Clinical Impression: ACUTE BRONCHITIS Condition: Stable Critical Care Time: No Referrals: GABBY LANE MD [Primary Care Provider] - Additional Instructions: TYLENOL OR MOTRIN NEEDED FOR FEVER OR CHILLS, ANTIBIOTIC LEVAQUIN 500MG DAILY FOR 10 DAYS. DRINK PLENTY OF FLUIDS. CONSULT YOUR PRIMARY CARE PROVIDER FOR EVALUATION AND SLUDGE IN GALLBLADDER. Prescriptions: Levofloxacin [Levaquin] 500 mg PO DAILY #10 tablet
[2017-10-04] MEDS ORDERED: Sodium Chloride 0.9% 1000 ML 1,000 ML ONE (22:38)
[2017-10-04 23:01] LABS: BASOPHIL % 0.1 % (0.0-0.4); Basophil (Absolute #) 0.01 (0-0.4); Eosinophil % 0.3 % (0.00-5.0); Eosinophil (Absolute #) 0.03 (0-0.5); Granulocyte Absolute (ANC) 7.99 (1.4-6.9); Granulocytes % 81.4 % (36.0-66.0); Hematocrit 43.5 % (42-50); Hemoglobin 15.3 gm/dl (12.5-18.0); Lymphocyte (Absolute #) 0.76 (1.0-4.6); Lymphocytes % 7.7 % (24.0-44.0); Mean Corpuscular Hemoglobin 30.6 pg (26-32); Mean Corpuscular Hgb Concent. 35.2 g/dl (32-36); Mean Platelet Volume 11.8 fl (6-9.5); Monocyte (Absolute #) 1.03 (0.0-1.3); Monocytes % 10.5 % (0.0-12.0); Platelet Count 134 K/mm3 (150-450); Red Cell Distribution Width 12.7 % (11.5-14.0); White Blood Count 9.8 K/mm3 (4.0-10.5)
[2017-10-04 23:26] LABS: AMYLASE 49 U/L (25-115); LIPASE 107 U/L (73-393)
[2017-10-04 23:38] LABS: ALBUMIN 3.8 g/dL (3.4-5.0); ALKALINE PHOSPHATASE 117 U/L (46-116); BLOOD UREA NITROGEN 8 mg/dL (9-20); CHLORIDE 101 mEq/L (98-107); Calcium 8.6 mg/dL (8.5-10.1); Carbon Dioxide 23.3 mEq/L (21-32); Creatinine 1 1.17 mg/dl (0.55-1.30); EST GLOMERULAR FILTRATION RATE > 60 ML/MIN; Glucose 127 MG/DL (70-110); NT PRO BNP 165 pg/ml (0-125); Potassium 3.5 mEq/L (3.5-5.1); SGOT/AST 29 U/L (15-37); SGPT/ALT 35 U/L (12-78); SODIUM 132 mEq/L (136-145); Total Protein 7.1 gm/dL (6.4-8.2)
[2017-10-04 23:41] LABS: INR 1.25 (0.8-3.0)
[2017-10-05 00:12] LABS: Appearance CLEAR (CLEAR); Bilirubin NEGATIVE (NEGATIVE); Blood NEGATIVE Ery/ul (0-5); Glucose 50 mg/dL (NEGATIVE); Ketones NEGATIVE (NEGATIVE); Leukocyte Esterase NEGATIVE (NEGATIVE); Nitrite NEGATIVE (NEGATIVE); Ph 6.5 (5-6); Protein,Urine Dip NEGATIVE (Negative); Urobilinogen 1 mg/dL (0-1)
[2017-10-05 00:19] LABS: INFLUENZA A NEGATIVE (NEGATIVE); INFLUENZA B NEGATIVE (NEGATIVE); RESPIRATORY SYNCTIAL VIRUS NEGATIVE (Negative)
[2017-10-05] MEDS ORDERED: Levofloxacin 500MG/100ML D5W 500 MG/100 ML BAG IV STA (00:25)
[2017-10-05] MEDS ORDERED: Levofloxacin 500MG/100ML D5W 500 MG/100 ML BAG IV ONE (00:26)
[2017-10-05 01:33] VITALS: BP 151/78; PULSE 70; O2SAT 94
--- NOTE | 2017-10-05 08:48 | XRAY ---
Indication: Cough. Comparison: April 08, 2017. Portable chest unchanged again demonstrating minimal left base atelectasis/scarring. Remaining heart and lungs unremarkable. Bony thorax intact with interval right shoulder arthroplasty. Impression: Nonacute chest with chronic features.
--- NOTE | 2017-10-05 08:48 | XRAY ---
Indication: Lower abdominal pain and fever. Multiple contiguous axial images obtained through the abdomen and pelvis without contrast as ordered. Comparison: May 29, 2015. Lung bases demonstrates minimal bibasilar atelectasis/scarring. No infiltrate or effusion. Heart is not enlarged. Noncontrasted stomach and bowel loops appear nonobstructed. Normal appendix. Again mild scattered colonic diverticulosis. Intact sigmoid anastomosis. No free fluid/air. There is now gallbladder sludge without gallstones or biliary distention. Remaining liver, pancreas, spleen, adrenal glands, kidneys, ureters, bladder, and aorta appear unremarkable for noncontrast exam. Osseous structures intact again with mild degenerative changes throughout the spine and dextro rotoscoliosis. Impression: 1. Gallbladder sludge better evaluated with gallbladder sonogram if clinically warranted. 2. Stable colonic diverticulosis without diverticulitis. 3. No acute intra-abdominal/pelvic abnormalities on this noncontrast exam. Comment: Preliminary interpretation was made by [facility]. No discrepancy. CTDI 23.65
== END 2017-10-05 01:33 | disposition home or self-care (01) ==
LOC: ED 21:25
DX: J20.9 Acute bronchitis, unspecified (principal); Z79.899 Other long term (current) drug therapy
CPT/HCPCS: 36000; 36415; 71045; 74176; 80053; 81002; 82150; 83690; 83880; 84484; 85025; 85610; 87040; 87631; 93005; 94640; 96360; 96361; 96365; 99285; J1956; A9270-GY

== ENCOUNTER 2018-04-29 16:54 | Emergency (ER) | payer MEDICARE ==
--- NOTE | 2018-04-29 17:31 | ERPHSYRPT ---
- History of Present Illness Time Seen by Provider: 04/29/18 17:27 Historian: patient, family Exam Limitations: no limitations Patient Subjective Stated Complaint: lower abd pain for three days. also having sore throat and cough for two days. hx of three hiatal hernia surgeries. Triage Nursing Assessment: ambulated to room per self. skin w/d, color normal, resp easy. abd soft, tender lower abd. normal bowel sounds. Physician History: 72 y/o white male presents with bilat lower abd pain for 2 days. pt also has a sore throat and cough. pt denies n/v/d pt states he has an allergy to ivp dye. his rxn was soa. pt then states he had a ct scan of his abd/pelvis at [facility] and was premedicated and he tolerated the test with contrast without problems. pt denies flank pain. he denies cp and soa. pt has had multiple abd surgeries in the past. most recently, november 2017,he underwent an oper recurrent hernia repair. Timing/Duration: day(s) (2 to 3 days) Activities at Onset: none Quality: aching, pressure Abdominal Pain Onset Location: RLQ, LLQ Pain Radiation: no radiation Severity of Pain-Max: mild Severity of Pain-Current: mild Associated Symptoms: denies symptoms, No back, No chest pain, No diaphoresis, No diarrhea, No loss of appetite, No nausea, No shortness of breath, No vomiting Previous symptoms: same symptoms as today Allergies/Adverse Reactions: Iodinated Contrast- Oral and IV Dye [IV Dye, Iodine Containing Contrast ] Allergy (Mild, Verified 04/29/18 17:01) Hives Penicillins Allergy (Mild, Verified 04/29/18 17:01) Hives Home Medications: Pregabalin [Lyrica 150Mg] 150 mg PO BID 06/25/16 [History] Metronidazole/Skin Cleanser 23 [Rosadan 0.75% Gel Kit] 1 each TP BID 08/26/16 [ History] Zolpidem Tartrate [Ambien] 5 mg PO HS 11/17/16 [History] Buspirone HCl [Buspar] 10 mg PO BID 01/19/17 [History] Omeprazole 20 MG [Prilosec 20 mg] 20 mg PO DAILY 04/08/17 [History] Clindamycin HCl 300 mg PO DAILY 10/04/17 [History] Oxycodone HCl 5 mg PO HS 10/04/17 [History] Oxycodone Myristate [Xtampza ER] 13.5 mg PO DAILY 10/04/17 [History] Hx Tetanus, Diphtheria Vaccination/Date Given: Yes Hx Influenza Vaccination/Date Given: Yes Hx Pneumococcal Vaccination/Date Given: Yes - Review of Systems Constitutional: No Symptoms, No Fever, No Chills Eyes: No Symptoms, No Discharge Ears, Nose, & Throat: No Symptoms, No Ear Pain Respiratory: No Symptoms, No Cough, No Dyspnea, No Stridor, No Wheezing Cardiac: No Symptoms, No Chest Pain, No Palpitations, No Syncope Abdominal/Gastrointestinal: Abdominal Pain, No Nausea, No Vomiting, No Diarrhea , No Constipation Genitourinary Symptoms: No Symptoms, No Dysuria, No Frequency, No Hematuria Musculoskeletal: No Symptoms Skin: No Symptoms Neurological: No Symptoms Psychological: No Symptoms Endocrine: No Symptoms Hematologic/Lymphatic: No Symptoms Immunological/Allergic: No Symptoms All Other Systems: Reviewed and Negative - Past Medical History Pertinent Past Medical History: Yes Neurological History: No Pertinent History ENT History: Glaucoma Cardiac History: Angina, Other Respiratory History: Asthma, Bronchitis Endocrine Medical History: No Pertinent History Musculoskeletal History: Arthritis GI Medical History: GERD, Hernia, Polyps, Other History: No Pertinent History Psycho-Social History: Anxiety, Depression Male Reproductive Disorders: No Pertinent History Other Medical History: heart cath - Past Surgical History Past Surgical History: Yes Neuro Surgical History: No Pertinent History Cardiac: Cardiac Catheterization Respiratory: No Pertinent History Gastrointestinal: Colon Resection, Hernia Repair Genitourinary: No Pertinent History Musculoskeletal: Orthopedic Surgery Male Surgical History: No Pertinent History Other Surgical History: Pt had major facial reconstruction; also colon resection for obstruction by polyps, shoulder surgery; Right thumb was surgically reattached after it was accidentally severed. right shoulder surgery (2017) - Social History Smoking Status: Never smoker Exposure to second hand smoke: Yes Drug Use: none Patient Lives Alone: No - Nursing Vital Signs Nursing Vital Signs: Initial Vital Signs Temperature 98.6 F 04/29/18 16:58 Pulse Rate 61 04/29/18 16:58 Respiratory Rate 18 04/29/18 16:58 Blood Pressure 134/80 04/29/18 16:58 O2 Sat by Pulse Oximetry 97 04/29/18 16:58 Pain Scale Pain Intensity 8 - Physical Exam General Appearance: no apparent distress, alert, anxiety Eye Exam: PERRL/EOMI Ears, Nose, Throat Exam: normal ENT inspection, TMs normal Neck Exam: normal inspection, non-tender, supple, full range of motion Respiratory Exam: normal breath sounds, lungs clear, airway intact, No chest tenderness, No respiratory distress Cardiovascular Exam: regular rate/rhythm, normal heart sounds, normal peripheral pulses Gastrointestinal/Abdomen Exam: soft, normal bowel sounds, tenderness (mild bilat lower quadrant tenderness), No distention, No guarding, No rebound Rectal Exam: not done Back Exam: normal inspection, normal range of motion, No CVA tenderness, No vertebral tenderness Extremity Exam: normal inspection, normal range of motion, pelvis stable Neurologic Exam: alert, oriented x 3, cooperative, astrophysics teacher II-XII nml as tested Skin Exam: normal color, warm, dry Lymphatic Exam: adenopathy SpO2 Interpretation: normal SpO2: 97 Oxygen Delivery: Room Air - Course Nursing assessment & vital signs reviewed: Yes Ordered Tests: Active Orders 24 hr Category Date Time Status ABDOMEN AND PELVIS W/0 CONTRAS [CT] Stat Exams 04/29/18 17:55 Taken AMYLASE Stat Lab 04/29/18 18:13 Completed CBC W DIFF Stat Lab 04/29/18 18:13 Completed CMP Stat Lab 04/29/18 18:13 Completed Lactic Acid Stat Lab 04/29/18 18:15 Completed Lactic Acid Stat Lab 04/29/18 20:27 Ordered UA W/RFX UR CULTURE Stat Lab 04/29/18 18:18 Completed Medication Summary Discontinued Medications Generic Name Dose Route Start Last Admin Trade Name Alexxq PRN Reason Stop Dose Admin Diphenhydramine HCl 50 mg 04/29/18 17:56 04/29/18 18:05 Benadryl 50 Mg/Ml IV 04/29/18 17:57 50 mg STAT ONE Administration Diphenhydramine HCl Confirm 04/29/18 18:04 Benadryl 50 Mg/Ml Administered 04/29/18 18:05 Dose 50 mg .ROUTE .STK-MED ONE Methylprednisolone Sodium Succinate 125 mg 04/29/18 17:57 04/29/18 18:06 Solu-Medrol 125 Mg IV 04/29/18 17:58 125 mg STAT ONE Administration Methylprednisolone Sodium Succinate Confirm 04/29/18 18:04 Solu-Medrol 125 Mg Administered 04/29/18 18:05 Dose 125 mg .ROUTE .STK-MED ONE Lab/Rad Data: Laboratory Result Diagrams 04/29/18 18:13 04/29/18 18:13 Laboratory Results 04/29/18 04/29/18 04/29/18 Range/Units 18:18 18:15 18:13 WBC (4.0-10.5) K/mm3 RBC (4.1-5.6) M/mm3 Hgb (12.5-18.0) gm/dl Hct (42-50) % MCV (78-100) fl MCH (26-32) pg MCHC (32-36) g/dl RDW (11.5-14.0) % Plt Count (150-450) K/mm3 MPV (6-9.5) fl Gran % (36.0-66.0) % Eos # (Auto) (0-0.5) Absolute Lymphs (auto) (1.0-4.6) Absolute Monos (auto) (0.0-1.3) Lymphocytes % (24.0-44.0) % Monocytes % (0.0-12.0) % Eosinophils % (0.00-5.0) % Basophils % (0.0-0.4) % Absolute Granulocytes (1.4-6.9) Basophils # (0-0.4) Sodium 138 (137-145) mmol/L Potassium 4.3 (3.5-5.1) mmol/L Chloride 108 H (98-107) mmol/L Carbon Dioxide 24 (22-30) mmol/L Anion Gap 11.1 (5-15) MEQ/L BUN 10 (9-20) mg/dL Creatinine 0.81 (0.66-1.25) mg/dL Estimated GFR > 60.0 ML/MIN Glucose 195 H (74-106) mg/dL Lactic Acid 2.0 (0.4-2.0) Calcium 8.4 (8.4-10.2) mg/dL Total Bilirubin 0.70 (0.2-1.3) mg/dL AST 40 (17-59) U/L ALT 47 (0-50) U/L Alkaline Phosphatase 103 (38-126) U/L Serum Total Protein 6.2 L (6.3-8.2) g/dL Albumin 3.5 (3.5-5.0) g/dL Amylase 66 (30-110) U/L Ur Collection Type VOID Urine Color YELLOW (YELLOW) Urine Appearance CLEAR (CLEAR) Urine pH 5.0 (5-6) Ur Specific [place] 1.020 (1.005-1.025) Urine Protein NEGATIVE (Negative) Urine Ketones NEGATIVE (NEGATIVE) Urine Blood NEGATIVE (0-5) Jose/ul Urine Nitrite NEGATIVE (NEGATIVE) Urine Bilirubin SMALL (NEGATIVE) Urine Urobilinogen 1 (0-1) mg/dL Ur Leukocyte Esterase NEGATIVE (NEGATIVE) Urine Culture Reflexed NO (NO) Urine Glucose 100 (NEGATIVE) mg/dL Specimen Received 04/29/18 1820 04/29/18 Range/Units 18:13 WBC 6.5 (4.0-10.5) K/mm3 RBC 4.75 (4.1-5.6) M/mm3 Hgb 14.3 (12.5-18.0) gm/dl Hct 41.5 L (42-50) % MCV 87.4 (78-100) fl MCH 30.1 (26-32) pg MCHC 34.5 (32-36) g/dl RDW 13.6 (11.5-14.0) % Plt Count 140 L (150-450) K/mm3 MPV 11.8 H (6-9.5) fl Gran % 72.7 H (36.0-66.0) % Eos # (Auto) 0.23 (0-0.5) Absolute Lymphs (auto) 0.84 L (1.0-4.6) Absolute Monos (auto) 0.67 (0.0-1.3) Lymphocytes % 13.0 L (24.0-44.0) % Monocytes % 10.4 (0.0-12.0) % Eosinophils % 3.6 (0.00-5.0) % Basophils % 0.3 (0.0-0.4) % Absolute Granulocytes 4.71 (1.4-6.9) Basophils # 0.02 (0-0.4) Sodium (137-145) mmol/L Potassium (3.5-5.1) mmol/L Chloride (98-107) mmol/L Carbon Dioxide (22-30) mmol/L Anion Gap (5-15) MEQ/L BUN (9-20) mg/dL Creatinine (0.66-1.25) mg/dL Estimated GFR ML/MIN Glucose (74-106) mg/dL Lactic Acid (0.4-2.0) Calcium (8.4-10.2) mg/dL Total Bilirubin (0.2-1.3) mg/dL AST (17-59) U/L ALT (0-50) U/L Alkaline Phosphatase (38-126) U/L Serum Total Protein (6.3-8.2) g/dL Albumin (3.5-5.0) g/dL Amylase (30-110) U/L Ur Collection Type Urine Color (YELLOW) Urine Appearance (CLEAR) Urine pH (5-6) Ur Specific [place] (1.005-1.025) Urine Protein (Negative) Urine Ketones (NEGATIVE) Urine Blood (0-5) Jose/ul Urine Nitrite (NEGATIVE) Urine Bilirubin (NEGATIVE) Urine Urobilinogen (0-1) mg/dL Ur Leukocyte Esterase (NEGATIVE) Urine Culture Reflexed (NO) Urine Glucose (NEGATIVE) mg/dL Specimen Received ct scn abd/pelvis no acute process - Progress Progress: improved Progress Note: 04/29/18 20:14 i had another long d/w pt regarding the allergy to ivp dye. arcade technician came to get him. she reviewed hx with him. he was telling her something different than what he told me regarding sx of allergic rxn to the ivp dye. i went to obtain clarification and he stated to me he had so many tests he cannot remember what actually happened. so, despite premedicating him with solumedrol and benadryl, we have decided on a non contrast ct abd/pelvis Counseled pt/family regarding: lab results, diagnosis, need for follow-up, rad results - Departure Time of Disposition: 20:59 Departure Disposition: Home Clinical Impression: Abdominal pain Condition: Stable Critical Care Time: No Referrals: GABBY LANE MD [Primary Care Provider] - Additional Instructions: drink plenty of fluids. follow up with primary surgeon tomorrow to arrange follow up appointment.
[2018-04-29] MEDS ORDERED: BENADRYL 50 MG/ML IV ONE (17:56)
[2018-04-29] MEDS ORDERED: solu-MEDROL 125 MG IV ONE (17:57)
[2018-04-29] MEDS ORDERED: BENADRYL 50 MG/ML ONE (18:04)
[2018-04-29] MEDS ORDERED: solu-MEDROL 125 MG ONE (18:04)
[2018-04-29 18:19] LABS: BASOPHIL % 0.3 % (0.0-0.4); Basophil (Absolute #) 0.02 (0-0.4); Eosinophil % 3.6 % (0.00-5.0); Eosinophil (Absolute #) 0.23 (0-0.5); Granulocyte Absolute (ANC) 4.71 (1.4-6.9); Granulocytes % 72.7 % (36.0-66.0); Hematocrit 41.5 % (42-50); Hemoglobin 14.3 gm/dl (12.5-18.0); Lymphocyte (Absolute #) 0.84 (1.0-4.6); Mean Cell Volume 87.4 fl (78-100); Mean Corpuscular Hemoglobin 30.1 pg (26-32); Mean Corpuscular Hgb Concent. 34.5 g/dl (32-36); Mean Platelet Volume 11.8 fl (6-9.5); Monocyte (Absolute #) 0.67 (0.0-1.3); Monocytes % 10.4 % (0.0-12.0); Platelet Count 140 K/mm3 (150-450); Red Blood Count 4.75 M/mm3 (4.1-5.6); Red Cell Distribution Width 13.6 % (11.5-14.0); White Blood Count 6.5 K/mm3 (4.0-10.5)
[2018-04-29 18:24] LABS: Appearance CLEAR (CLEAR); Bilirubin SMALL (NEGATIVE); Blood NEGATIVE Ery/ul (0-5); Glucose 100 mg/dL (NEGATIVE); Ketones NEGATIVE (NEGATIVE); Leukocyte Esterase NEGATIVE (NEGATIVE); Nitrite NEGATIVE (NEGATIVE); Protein,Urine Dip NEGATIVE (Negative); Urobilinogen 1 mg/dL (0-1)
[2018-04-29 18:39] LABS: ALBUMIN 3.5 g/dL (3.5-5.0); ALKALINE PHOSPHATASE 103 U/L (38-126); AMYLASE 66 U/L (30-110); ANION GAP 11.1 MEQ/L (5-15); BLOOD UREA NITROGEN 10 mg/dL (9-20); CHLORIDE 108 mmol/L (98-107); Calcium 8.4 mg/dL (8.4-10.2); Carbon Dioxide 24 mmol/L (22-30); Creatinine 1 0.81 mg/dL (0.66-1.25); Glucose 195 mg/dL (74-106); Potassium 4.3 mmol/L (3.5-5.1); SGOT/AST 40 U/L (17-59); SGPT/ALT 47 U/L (0-50); SODIUM 138 mmol/L (137-145); Total Protein 6.2 g/dL (6.3-8.2)
[2018-04-29 19:51] VITALS: BP 115/94
[2018-04-29 21:01] VITALS: O2SAT 97
[2018-04-29 21:34] VITALS: PULSE 67
--- NOTE | 2018-04-30 08:47 | XRAY ---
Indication: Abdominal pain/tenderness. Nausea. Multiple contiguous axial images obtained through the abdomen and pelvis without IV contrast as ordered. Enteric contrast given. Comparison: October 04, 2017. Lung bases demonstrates left base atelectasis/scarring. No infiltrate or effusion. Heart is not enlarged. Interval gastroesophageal junction surgery. Contrasted stomach and bowel loops appear nonobstructed. Again normal appendix, intact sigmoid anastomosis, and scattered colonic diverticulosis. No free fluid/air. Remaining liver, gallbladder, pancreas, spleen, adrenal glands, kidneys, ureters, bladder, and aorta appear unremarkable for noncontrast exam. Osseous structures intact again with moderate degenerative changes throughout the spine and dextroscoliosis. Impression: 1. Stable colonic diverticulosis without diverticulitis. 2. Status post gastroesophageal junction surgery without complications. 3. No acute intra-abdominal/pelvic abnormalities on this noncontrast exam. CT DI 23.29
== END 2018-04-29 21:34 | disposition home or self-care (01) ==
LOC: ED 16:54
DX: R10.31 Right lower quadrant pain (principal); R10.32 Left lower quadrant pain; J02.9 Acute pharyngitis, unspecified; R05 Cough; Z79.899 Other long term (current) drug therapy
CPT/HCPCS: 36000; 36415; 74176; 80053; 81002; 82150; 83605; 85025; 96374; 96375; 99284; J1200; J2930

== ENCOUNTER 2019-03-02 21:10 | Emergency (ER) | payer MEDICARE ==
[2019-03-02] MEDS ORDERED: ZOFRAN ODT 4 MG PO ONE (21:51)
[2019-03-02] MEDS ORDERED: ZOFRAN ODT 4 MG ONE (21:54)
--- NOTE | 2019-03-02 21:56 | ERPHSYRPT ---
- History of Present Illness Time Seen by Provider: 03/02/19 21:44 Source: patient Exam Limitations: no limitations Patient Subjective Stated Complaint: fell at home yest, lt hip pain, sharp , woke today w pain radiating around into groin. Triage Nursing Assessment: no obvious deformity, nor bruising noted. pulses palp Physician History: This is a 73-year-old white male with history of glaucoma, angina, arthritis, bronchitis, GERD, hernia, polyps, anxiety, depression, chronic pain He arrives with complaint of pain in his left hip radiating to his left groin since falling yesterday. He states that he is not been taking his pain medications because he feels somewhat nauseous. Is not having abdominal pain he has not had problems breathing. He states he is not having any urinary symptoms Past medical history includes glaucoma, angina, asthma, bronchitis, arthritis, GERD, hernia, polyps, anxiety, depression Past surgical history includes cardiac catheter, colon resection, hernia repair , orthopedic surgery, facial reconstruction, colonic resection secondary to polyps, shoulder surgery, right thumb reattached. 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 Timing/Duration: yesterday Severity: moderate Modifying Factors: Improves With: movement Associated Symptoms: nausea, No vomiting, No abdominal pain, No shortness of breath, No heartburn, No diaphoresis, No cough, No chills, No chest pain, No fever, No headaches, No loss of appetite, No malaise, No rash, No syncope, No seizure Allergies/Adverse Reactions: Iodinated Contrast- Oral and IV Dye [IV Dye, Iodine Containing Contrast ] Allergy (Mild, Verified 04/29/18 17:01) Hives Penicillins Allergy (Mild, Verified 04/29/18 17:01) Hives Home Medications: Metronidazole/Skin Cleanser 23 [Rosadan 0.75% Gel Kit] 1 each TP BID 08/26/16 [ History] Zolpidem Tartrate [Ambien] 5 mg PO HS PRN 11/17/16 [History] Oxycodone HCl 5 mg PO HS 10/04/17 [History] Oxycodone Myristate [Xtampza ER] 13.5 mg PO DAILY 10/04/17 [History] Hx Tetanus, Diphtheria Vaccination/Date Given: Yes Hx Influenza Vaccination/Date Given: Yes Hx Pneumococcal Vaccination/Date Given: Yes - Review of Systems Constitutional: No Fever, No Chills Eyes: No Symptoms Ears, Nose, & Throat: No Symptoms Respiratory: No Cough, No Dyspnea Cardiac: No Chest Pain, No Edema, No Syncope Abdominal/Gastrointestinal: No Abdominal Pain, No Nausea, No Vomiting, No Diarrhea Genitourinary Symptoms: No Dysuria Musculoskeletal: Other (left hip pain radiating to left groin) Skin: No Rash Neurological: No Dizziness, No Focal Weakness, No Sensory Changes Psychological: No Symptoms Endocrine: No Symptoms All Other Systems: Reviewed and Negative - Past Medical History Pertinent Past Medical History: Yes Neurological History: No Pertinent History ENT History: Glaucoma Cardiac History: Angina, Other Respiratory History: Asthma, Bronchitis Endocrine Medical History: No Pertinent History Musculoskeletal History: Arthritis GI Medical History: GERD, Hernia, Polyps, Other History: No Pertinent History Psycho-Social History: Anxiety, Depression Male Reproductive Disorders: No Pertinent History Other Medical History: heart cath - Past Surgical History Past Surgical History: Yes Neuro Surgical History: No Pertinent History Cardiac: Cardiac Catheterization Respiratory: No Pertinent History Gastrointestinal: Bowel Surgery, Colon Resection, Hernia Repair Genitourinary: No Pertinent History Musculoskeletal: Orthopedic Surgery Male Surgical History: No Pertinent History Other Surgical History: Pt had major facial reconstruction; also colon resection for obstruction by polyps, shoulder surgery; Right thumb was surgically reattached after it was accidentally severed. right shoulder surgery (2017) , rt shoulder surgery 2018 - Social History Smoking Status: Never smoker Exposure to second hand smoke: Yes Drug Use: none Patient Lives Alone: No - Nursing Vital Signs Nursing Vital Signs: Initial Vital Signs Temperature 98 F 03/02/19 21:29 Pulse Rate 65 03/02/19 21:29 Respiratory Rate 18 03/02/19 21:29 Blood Pressure 145/78 03/02/19 21:29 O2 Sat by Pulse Oximetry 100 03/02/19 21:29 Pain Scale Pain Intensity 9 - Physical Exam General Appearance: no apparent distress, alert Eye Exam: PERRL/EOMI, eyes nml inspection Ears, Nose, Throat Exam: normal ENT inspection, TMs normal, pharynx normal, moist mucous membranes Neck Exam: normal inspection, non-tender, supple, full range of motion Respiratory Exam: normal breath sounds, lungs clear, No respiratory distress Cardiovascular Exam: regular rate/rhythm, normal heart sounds, normal peripheral pulses, capillary refill <2 sec Gastrointestinal/Abdomen Exam: soft, normal bowel sounds, No tenderness, No mass Back Exam: normal inspection, normal range of motion, No CVA tenderness, No vertebral tenderness Extremity Exam: other (left lateral hip tender with palpation and movement) Neurologic Exam: alert, oriented x 3, cooperative, 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, normal mood/affect, nml cerebellar function, nml station & gait, sensation nml, No motor deficits Skin Exam: normal color, warm, dry, No rash Lymphatic Exam: No adenopathy SpO2 Interpretation: normal (100%) SpO2: 100 - Course Nursing assessment & vital signs reviewed: Yes - Radiology Exams Left Hip X-ray Interpretation: Interpreted by me, Negative, No Fracture, No Subluxation Ordered Tests: Active Orders 24 hr Category Date Time Status HIP UNI (2V) INCL PEL IF DONE Stat Exams 03/02/19 21:50 Taken Medication Summary Discontinued Medications Generic Name Dose Route Start Last Admin Trade Name Ronda PRN Reason Stop Dose Admin Ondansetron HCl 4 mg 03/02/19 21:51 03/02/19 21:55 Zofran Odt 4 Mg PO 03/02/19 21:52 4 mg STAT ONE Administration Ondansetron HCl Confirm 03/02/19 21:54 Zofran Odt 4 Mg Administered 03/02/19 21:55 Dose 4 mg .ROUTE .[facility]MED ONE - Progress Progress: improved Progress Note: 03/02/19 22:26 73-year-old white male with history of chronic pain arrives with complaint of pain in his left hip since falling yesterday. Patient's x-ray of his left hip no acute fractures are noted. Patient was given some Zofran so he will be able to tolerate his pain medications. Will also give patient Toradol 60 mg IM he states he is not on any blood thinners. Will also give the patient crutches. Impression accidental fall. Contusion left hip. Left hip pain. - Departure Departure Disposition: Home Clinical Impression: Left hip pain Accidental fall Qualifiers: Encounter type: initial encounter Qualified Code(s): W19.XXXA - Unspecified fall, initial encounter Contusion of left hip Qualifiers: Encounter type: initial encounter Qualified Code(s): S70.02XA - Contusion of left hip, initial encounter Condition: Fair Critical Care Time: No Referrals: SUKHDEEP ALVES [Primary Care Provider] - Additional Instructions: Return home. Pain medications as prescribed by your pain accounting manager controller. Crutches weightbearing as tolerated left lower extremity. Cold packs left hip 24-48 hours. Followup with your family doctor if symptoms no better in 24-48 hours worse or persist longer than 72 hours. Your x-rays have been preliminarily read they will be reread tomorrow you'll be notified if any discrepancies are noted.
[2019-03-02] MEDS ORDERED: TORAdol 30 mg Injection IM ONE (22:29)
[2019-03-02 22:30] VITALS: O2SAT 100
[2019-03-02] MEDS ORDERED: TORAdol 30 mg Injection ONE (22:32)
[2019-03-02 22:55] VITALS: BP 123/76; PULSE 62
--- NOTE | 2019-03-03 08:55 | XRAY ---
Indication: Pain following fall. Comparison: None AP pelvis and 2 views of the left hip demonstrates mild lower lumbar degenerative spondylosis and a few pelvic phleboliths. Faint irregular radiopacity overlying the medial proximal thigh soft tissues either external versus soft tissue calcification from old injury/inflammation. No other bony, articular, or soft tissue abnormalities.
== END 2019-03-02 22:54 | disposition home or self-care (01) ==
LOC: ED 21:10
DX: S70.02XA Contusion of left hip, initial encounter (principal); M25.552 Pain in left hip; Z79.899 Other long term (current) drug therapy; M19.90 Unspecified osteoarthritis, unspecified site; J40 Bronchitis, not specified as acute or chronic; K21.9 Gastro-esophageal reflux disease without esophagitis; F41.0 Panic disorder [episodic paroxysmal anxiety]; F32.9 Major depressive disorder, single episode, unspecified
CPT/HCPCS: 73502; 96372; 99284; J1885; Q0162

== ENCOUNTER 2019-09-15 17:06 | Emergency (ER) | payer MEDICARE ==
[2019-09-15] MEDS ORDERED: DUONEB 0.5-3 MG/3 ml Neb IH ONE ×2 (18:06→18:20)
[2019-09-15] MEDS ORDERED: solu-MEDROL 125 MG IV ONE (18:08)
[2019-09-15] MEDS ORDERED: solu-MEDROL 125 MG ONE (18:17)
--- NOTE | 2019-09-15 18:26 | ERPHSYRPT ---
- History of Present Illness Source: patient Exam Limitations: no limitations Patient Subjective Stated Complaint: Pt was diagnosed with the flu on Friday by Dr. Jones and was given Tamiflu and Tessalon Perles to take at home, pt states that he is feeling worse with a cough that makes it feel like someone is sitting on his chest Triage Nursing Assessment: Pt walked into the ER, mild coughing, denies pain while not coughing, vitals wnl, pulses normal, right lungs clear, left lungs diminished, doesn't appear to be in any distress Timing/Duration: week(s) (1) Cough Quality/Degree: moderate Modifying Factors: Improves With: coughing Associated Symptoms: chest pain/soreness, cough, headache, nasal congestion Hx Tetanus, Diphtheria Vaccination/Date Given: Yes Hx Influenza Vaccination/Date Given: Yes Hx Pneumococcal Vaccination/Date Given: Yes <JAMES BREWER - Last Filed: 09/15/19 18:21> <SUREKHA GOZNALEZ - Last Filed: 09/15/19 20:01> - History of Present Illness Time Seen by Provider: 09/15/19 17:51 Physician History: 73 years old male with URI followed by a cough for almost one the lung with generalized body aching and fatigue was seen at primary care office 2 days ago, diagnosed with flu and currently on Tamiflu and Tessalon Perles presented to the ER with increasing cough productive of minimal yellow to clear sputum. Patient reports he is having coughing bouts last night making it unable to sleep.. Because of repeated coughing he has soreness in the chest. Occasional shortness of breath at times but not at present. He denies any chest pain but resting/without coughing. His subjective feeling of fever and chills. Denies any nausea or vomiting. (JAMES BREWER) Allergies/Adverse Reactions: Iodinated Contrast Media [IV Dye, Iodine Containing Contrast ] Allergy (Mild, Verified 09/15/19 17:37) Hives Penicillins Allergy (Mild, Verified 09/15/19 17:37) Hives Home Medications: Metronidazole/Skin Cleanser 23 [Rosadan 0.75% Gel Kit] 1 each TP BID 08/26/16 [ History] Zolpidem Tartrate [Ambien] 5 mg PO HS PRN 11/17/16 [History] Oxycodone HCl 5 mg PO HS 10/04/17 [History] Oxycodone Myristate [Xtampza ER] 9 mg PO BID 10/04/17 [History] Famotidine [Pepcid] 40 mg PO BID 09/15/19 [History] Ondansetron ODT 4 MG [Zofran Odt 4 mg] 4 mg SL UD PRN 09/15/19 [History] - Review of Systems Constitutional: Fever, Chills, Fatigue, Malaise Respiratory: Cough, Wheezing Cardiac: No Palpitations, No Syncope Abdominal/Gastrointestinal: Nausea Genitourinary Symptoms: No Symptoms Musculoskeletal: Myalgias Skin: No Symptoms Neurological: No Symptoms Psychological: No Symptoms Endocrine: No Symptoms Hematologic/Lymphatic: No Symptoms Immunological/Allergic: No Symptoms <JAMES BREWER - Last Filed: 09/15/19 18:21> - Past Medical History Pertinent Past Medical History: Yes Neurological History: No Pertinent History ENT History: Glaucoma Cardiac History: Angina, Other Respiratory History: Asthma, Bronchitis Endocrine Medical History: No Pertinent History Musculoskeletal History: Arthritis GI Medical History: GERD, Hernia, Polyps, Other History: No Pertinent History Psycho-Social History: Anxiety, Depression Male Reproductive Disorders: No Pertinent History Other Medical History: heart cath - Past Surgical History Past Surgical History: Yes Neuro Surgical History: No Pertinent History Cardiac: Cardiac Catheterization Respiratory: No Pertinent History Gastrointestinal: Bowel Surgery, Colon Resection, Hernia Repair Genitourinary: No Pertinent History Musculoskeletal: Orthopedic Surgery Male Surgical History: No Pertinent History Other Surgical History: Pt had major facial reconstruction; also colon resection for obstruction by polyps, shoulder surgery; Right thumb was surgically reattached after it was accidentally severed. right shoulder surgery (2017) , rt shoulder surgery 2018 - Social History Smoking Status: Never smoker Exposure to second hand smoke: Yes Drug Use: none Patient Lives Alone: No <JAMES BREWER - Last Filed: 09/15/19 18:21> - Physical Exam General Appearance: no apparent distress Eye Exam: PERRL/EOMI, eyes nml inspection Ears, Nose, Throat Exam: TMs normal, moist mucous membranes, pharyngeal erythema Neck Exam: normal inspection, non-tender, supple, full range of motion Respiratory Exam: normal breath sounds, lungs clear, No chest tenderness Cardiovascular Exam: regular rate/rhythm, normal heart sounds Gastrointestinal/Abdomen Exam: soft, normal bowel sounds, No tenderness, No distention Back Exam: normal inspection Extremity Exam: normal inspection Neurologic Exam: alert, oriented x 3, cooperative Skin Exam: normal color, warm, dry SpO2 Interpretation: normal SpO2: 97 O2 Delivery: Room Air <JAMES BREWER - Last Filed: 09/15/19 18:21> - Nursing Vital Signs Nursing Vital Signs: Initial Vital Signs Temperature 98.0 F 09/15/19 17:27 Pulse Rate 63 09/15/19 17:27 Blood Pressure 139/90 09/15/19 17:27 O2 Sat by Pulse Oximetry 97 09/15/19 17:27 Pain Scale Pain Intensity 0 Ordered Tests: Active Orders 24 hr Category Date Time Status CHEST 2 VIEWS (PA AND LAT) Stat Exams 09/15/19 18:07 Taken BLOOD CULTURE Stat Lab 09/15/19 18:35 Received CBC W DIFF Stat Lab 09/15/19 18:30 Completed CMP Stat Lab 09/15/19 18:30 Completed Lactic Acid Stat Lab 09/15/19 18:45 Completed Peak Expiratory Flow Rate ONCE RT 09/15/19 18:29 Active Respiratory Therapy Assessment DAILY RT 09/15/19 18:28 Active Medication Summary Discontinued Medications Generic Name Dose Route Start Last Admin Trade Name Freq PRN Reason Stop Dose Admin Albuterol/Ipratropium 3 ml 09/15/19 18:06 09/15/19 18:24 Duoneb 0.5-3 Mg/3 Ml Neb IH 09/15/19 18:07 3 ml STAT ONE Administration Albuterol/Ipratropium Confirm 09/15/19 18:20 Duoneb 0.5-3 Mg/3 Ml Neb Administered 09/15/19 18:21 Dose 3 ml IH .STK-MED ONE Methylprednisolone Sodium Succinate 125 mg 09/15/19 18:08 09/15/19 18:48 Solu-Medrol 125 Mg IV 09/15/19 18:09 Not Given STAT ONE Methylprednisolone Sodium Succinate Confirm 09/15/19 18:17 Solu-Medrol 125 Mg Administered 09/15/19 18:18 Dose 125 mg .ROUTE .STK-MED ONE Methylprednisolone Sodium Succinate 125 mg 09/15/19 18:50 09/15/19 18:54 Solu-Medrol 125 Mg IM 09/15/19 18:51 125 mg STAT ONE Administration Ondansetron HCl 4 mg 09/15/19 19:28 09/15/19 19:30 Zofran Odt 4 Mg PO 09/15/19 19:29 4 mg STAT ONE Administration Ondansetron HCl Confirm 09/15/19 19:29 Zofran Odt 4 Mg Administered 09/15/19 19:30 Dose 4 mg .ROUTE .STK-MED ONE Lab/Rad Data: Laboratory Result Diagrams 09/15/19 18:30 09/15/19 18:30 Laboratory Results 09/15/19 09/15/19 09/15/19 Range/Units 18:45 18:30 18:30 WBC 5.5 (4.0-10.5) K/mm3 RBC 4.91 (4.1-5.6) M/mm3 Hgb 15.9 (12.5-18.0) gm/dl Hct 44.6 (42-50) % MCV 90.8 (78-100) fl MCH 32.4 H (26-32) pg MCHC 35.7 (32-36) g/dl RDW 13.0 (11.5-14.0) % Plt Count 158 (150-450) K/mm3 MPV 11.5 H (7.5-11.0) fl Gran % 69.3 H (36.0-66.0) % Eos # (Auto) 0.09 (0-0.5) Absolute Lymphs (auto) 1.04 (1.0-4.6) Absolute Monos (auto) 0.55 (0.0-1.3) Lymphocytes % 18.9 L (24.0-44.0) % Monocytes % 10.0 (0.0-12.0) % Eosinophils % 1.6 (0.00-5.0) % Basophils % 0.2 (0.0-0.4) % Absolute Granulocytes 3.82 (1.4-6.9) Basophils # 0.01 (0-0.4) Sodium 138 (137-145) mmol/L Potassium 4.0 (3.5-5.1) mmol/L Chloride 104 (98-107) mmol/L Carbon Dioxide 26 (22-30) mmol/L Anion Gap 11.9 (5-15) MEQ/L BUN 8 L (9-20) mg/dL Creatinine 0.70 (0.66-1.25) mg/dL Estimated GFR > 60.0 ML/MIN Glucose 246 H (74-106) mg/dL Lactic Acid 1.4 (0.4-2.0) Calcium 8.7 (8.4-10.2) mg/dL Total Bilirubin 0.60 (0.2-1.3) mg/dL AST 39 (17-59) U/L ALT 58 H (0-50) U/L Alkaline Phosphatase 118 (38-126) U/L Serum Total Protein 6.7 (6.3-8.2) g/dL Albumin 3.8 (3.5-5.0) g/dL <JAMES BREWER - Last Filed: 09/15/19 18:21> - Progress Progress: improved Air Movement: good Blood Culture(s) Obtained: Yes Counseled pt/family regarding: lab results, diagnosis, need for follow-up, rad results <SUREKHA GONZALEZ - Last Filed: 09/15/19 20:01> - Progress Progress Note: 09/15/19 20:00 cxr-no acute process (SUREKHA GONZALEZ) <JAMES BREWER - Last Filed: 09/15/19 18:21> - Departure Departure Disposition: Home Critical Care Time: No <SUREKHA GONZALEZ - Last Filed: 09/15/19 20:01> - Departure Clinical Impression: Bronchitis Condition: Stable Referrals: GIOVANNA JONES MD [Primary Care Provider] - Additional Instructions: drink plenty of fluids. follow up with primary doctor for further management Prescriptions: Azithromycin 250 mg [Zithromax 250 MG TABLET] 250 mg PO ZPACK #6 tablet Prednisone 10 mg [Deltasone 10 mg] 10 mg PO TID #12 tablet
[2019-09-15] MEDS ORDERED: solu-MEDROL 125 MG IM ONE (18:50)
[2019-09-15 18:53] LABS: Absolute Neutrophil Ct (ANC) 3.82 (1.4-6.9); BASOPHIL % 0.2 % (0.0-0.4); Basophil (Absolute #) 0.01 (0-0.4); Eosinophil % 1.6 % (0.00-5.0); Eosinophil (Absolute #) 0.09 (0-0.5); Hematocrit 44.6 % (42-50); Hemoglobin 15.9 gm/dl (12.5-18.0); Lymphocyte (Absolute #) 1.04 (1.0-4.6); Lymphocytes % 18.9 % (24.0-44.0); Mean Cell Volume 90.8 fl (78-100); Mean Corpuscular Hemoglobin 32.4 pg (26-32); Mean Corpuscular Hgb Concent. 35.7 g/dl (32-36); Mean Platelet Volume 11.5 fl (7.5-11.0); Monocyte (Absolute #) 0.55 (0.0-1.3); Neutrophil % 69.3 % (36.0-66.0); Platelet Count 158 K/mm3 (150-450); Red Blood Count 4.91 M/mm3 (4.1-5.6); White Blood Count 5.5 K/mm3 (4.0-10.5)
[2019-09-15 19:08] LABS: ALBUMIN 3.8 g/dL (3.5-5.0); ALKALINE PHOSPHATASE 118 U/L (38-126); ANION GAP 11.9 MEQ/L (5-15); BLOOD UREA NITROGEN 8 mg/dL (9-20); CHLORIDE 104 mmol/L (98-107); Calcium 8.7 mg/dL (8.4-10.2); Carbon Dioxide 26 mmol/L (22-30); Glucose 246 mg/dL (74-106); SGOT/AST 39 U/L (17-59); SGPT/ALT 58 U/L (0-50); SODIUM 138 mmol/L (137-145); Total Protein 6.7 g/dL (6.3-8.2)
[2019-09-15] MEDS ORDERED: ZOFRAN ODT 4 MG PO ONE (19:28)
[2019-09-15] MEDS ORDERED: ZOFRAN ODT 4 MG ONE (19:29)
[2019-09-15 20:33] VITALS: BP 138/84; PULSE 84; O2SAT 97
--- NOTE | 2019-09-16 08:45 | XRAY ---
Indication: Cough. Pneumonia/fluid. Comparison: October 04, 2017. PA/lateral chest again demonstrates left base subsegmental atelectasis/scarring, osteopenia, mild bony degenerative changes, mild scoliosis, and right shoulder arthroplasty. Remaining heart and lungs unremarkable. New epigastric surgical clips and left upper quadrant abdominal round radiopacities probable barium-filled colonic diverticulosis. Impression: Nonacute chest with chronic features.
== END 2019-09-15 20:42 | disposition home or self-care (01) ==
LOC: ED 17:06
DX: J40 Bronchitis, not specified as acute or chronic (principal); F41.9 Anxiety disorder, unspecified; Z90.49 Acquired absence of other specified parts of digestive tract
CPT/HCPCS: 36415; 71046; 80053; 83605; 85025; 87040; 94150; 94640; 96372; 99284; J2930; Q0162; A9270-GY

== ENCOUNTER 2019-10-02 14:51 | Emergency (ER) | payer MEDICARE ==
[2019-10-02 15:21] VITALS: O2SAT 96
[2019-10-02] MEDS ORDERED: TORAdol 30 mg Injection IM ONE (15:21)
[2019-10-02] MEDS ORDERED: Norflex 60 MG/2 ML IM ONE (15:22)
[2019-10-02] MEDS ORDERED: TORAdol 30 mg Injection ONE (15:26)
--- NOTE | 2019-10-02 15:26 | ERPHSYRPT ---
- History of Present Illness Time Seen by Provider: 10/02/19 15:24 Source: patient Exam Limitations: no limitations Patient Subjective Stated Complaint: states he fell yesterday evening while taking the dog out. now having lower back pain. has chronic lower back pain and took one of his oxycodones without relief. Triage Nursing Assessment: to room per w/c. skin w/d, color normal. tender to lower back. denies any weakness in legs. Physician History: he fell yesterday evening while taking the dog out. now having lower back pain. has chronic lower back pain and took one of his oxycodones without relief. no other injury Timing/Duration: yesterday Severity: moderate Associated Symptoms: denies symptoms Allergies/Adverse Reactions: Iodinated Contrast Media [IV Dye, Iodine Containing Contrast ] Allergy (Mild, Verified 10/02/19 15:07) Hives Penicillins Allergy (Mild, Verified 10/02/19 15:07) Hives Home Medications: Metronidazole/Skin Cleanser 23 [Rosadan 0.75% Gel Kit] 1 each TP BID 08/26/16 [ History] Zolpidem Tartrate [Ambien] 5 mg PO HS PRN 11/17/16 [History] Oxycodone HCl 5 mg PO HS 10/04/17 [History] Oxycodone Myristate [Xtampza ER] 9 mg PO BID 10/04/17 [History] Famotidine [Pepcid] 40 mg PO BID 09/15/19 [History] Ondansetron ODT 4 MG [Zofran Odt 4 mg] 4 mg SL UD PRN 09/15/19 [History] Hx Tetanus, Diphtheria Vaccination/Date Given: Yes Hx Influenza Vaccination/Date Given: Yes Hx Pneumococcal Vaccination/Date Given: Yes - Review of Systems Constitutional: No Fever, No Chills Eyes: No Symptoms Ears, Nose, & Throat: No Symptoms Respiratory: No Cough, No Dyspnea Cardiac: No Chest Pain, No Edema, No Syncope Abdominal/Gastrointestinal: No Abdominal Pain, No Nausea, No Vomiting, No Diarrhea Genitourinary Symptoms: No Dysuria Musculoskeletal: Back Pain, Fall, Joint Pain (left hip), No Neck Pain Skin: No Rash Neurological: No Dizziness, No Focal Weakness, No Sensory Changes Psychological: No Symptoms Endocrine: No Symptoms All Other Systems: Reviewed and Negative - Past Medical History Pertinent Past Medical History: Yes Neurological History: No Pertinent History ENT History: Glaucoma Cardiac History: Angina, Other Respiratory History: Asthma, Bronchitis Endocrine Medical History: No Pertinent History Musculoskeletal History: Arthritis GI Medical History: GERD, Hernia, Polyps, Other History: No Pertinent History Psycho-Social History: Anxiety, Depression Male Reproductive Disorders: No Pertinent History Other Medical History: heart cath - Past Surgical History Past Surgical History: Yes Neuro Surgical History: No Pertinent History Cardiac: Cardiac Catheterization Respiratory: No Pertinent History Gastrointestinal: Bowel Surgery, Colon Resection, Hernia Repair Genitourinary: No Pertinent History Musculoskeletal: Orthopedic Surgery Male Surgical History: No Pertinent History Other Surgical History: Pt had major facial reconstruction; also colon resection for obstruction by polyps, shoulder surgery; Right thumb was surgically reattached after it was accidentally severed. right shoulder surgery (2017) , rt shoulder surgery 2018 - Social History Smoking Status: Never smoker Exposure to second hand smoke: Yes Drug Use: none Patient Lives Alone: No - Nursing Vital Signs Nursing Vital Signs: Initial Vital Signs Temperature 98.3 F 10/02/19 14:56 Pulse Rate 70 10/02/19 14:56 Respiratory Rate 16 10/02/19 14:56 Blood Pressure 128/79 10/02/19 14:56 O2 Sat by Pulse Oximetry 96 10/02/19 14:56 Pain Scale Pain Intensity 8 - Physical Exam General Appearance: no apparent distress, alert Eye Exam: PERRL/EOMI, eyes nml inspection Ears, Nose, Throat Exam: normal ENT inspection, TMs normal, pharynx normal, moist mucous membranes Neck Exam: normal inspection, non-tender, supple, full range of motion Respiratory Exam: normal breath sounds, lungs clear, No respiratory distress Cardiovascular Exam: regular rate/rhythm, normal heart sounds, normal peripheral pulses Gastrointestinal/Abdomen Exam: soft, normal bowel sounds, No tenderness, No mass Back Exam: normal inspection, decreased range of motion, No CVA tenderness, No vertebral tenderness Extremity Exam: normal inspection, normal range of motion, pelvis stable, limited range of motion (left hip) Neurologic Exam: alert, oriented x 3, cooperative, normal mood/affect, nml cerebellar function, nml station & gait, sensation nml, No motor deficits Skin Exam: normal color, warm, dry, No rash Lymphatic Exam: No adenopathy SpO2: 96 - Course Nursing assessment & vital signs reviewed: Yes - Radiology Exams L-Spine X-ray Interpretation: Reviewed by me, Negative, No Fracture Hip X-ray Interpretation: Reviewed by me, Negative, No Fracture Ordered Tests: Active Orders 24 hr Category Date Time Status HIP UNI (2V) INCL PEL IF DONE Stat Exams 10/02/19 15:21 Ordered LUMBAR LIMITED (2 OR 3 VIEWS) Stat Exams 10/02/19 15:21 Ordered Medication Summary Discontinued Medications Generic Name Dose Route Start Last Admin Trade Name Ronda PRN Reason Stop Dose Admin Ketorolac Tromethamine 60 mg 10/02/19 15:21 10/02/19 15:30 Toradol 30 Mg Injection IM 10/02/19 15:22 60 mg STAT ONE Administration Ketorolac Tromethamine Confirm 10/02/19 15:26 Toradol 30 Mg Injection Administered 10/02/19 15:27 Dose 60 mg .ROUTE .STK-MED ONE Orphenadrine Citrate 60 mg 10/02/19 15:22 10/02/19 15:31 Norflex 60 Mg/2 Ml IM 10/02/19 15:23 60 mg STAT ONE Administration Orphenadrine Citrate Confirm 10/02/19 15:27 Norflex 60 Mg/2 Ml Administered 10/02/19 15:28 Dose 60 mg .ROUTE .STK-MED ONE - Progress Progress: improved, pain not gone completely Counseled pt/family regarding: diagnosis, need for follow-up, rad results - Departure Departure Disposition: Home Clinical Impression: Left hip pain, Back pain due to inflammatory process, Spondylosis of lumbar region without myelopathy or radiculopathy Contusion of left hip Qualifiers: Encounter type: initial encounter Qualified Code(s): S70.02XA - Contusion of left hip, initial encounter Accidental fall Qualifiers: Encounter type: initial encounter Qualified Code(s): W19.XXXA - Unspecified fall, initial encounter Condition: Stable Critical Care Time: No Referrals: GIOVANNA JONES MD [Primary Care Provider] - Instructions: Low Back Pain in Adults, Low Back Pain (DC), Lumbar Muscle Strain (DC), Contusion (DC), Preventing Falls Additional Instructions: Discharge/Care Plan KAREYAllegraCHASTITY SOLARES was seen on 10/02/19 in the Emergency Room. The patient was counseled regarding Diagnosis,Lab results, Imaging studies, need for follow up and when to return to the Emergency Room. Prescriptions given: Discharge Note I have spoken with the patient and/or caregivers. I have explained the patient' s condition, diagnosis and treatment plan based on the information available to me at this time. I have answered the patient's and/or caregiver's questions and addressed any concerns. The patient and/or caregivers have as good understanding of the patient's diagnosis, condition and treatment plan as can be expected at this point. The vital signs have been stable. The patient's condition is stable and appropriate for discharge from the emergency department. The patient will pursue further outpatient evaluation with the primary care physician or other designated or consulting physician as outlined in the discharge instructions. The patient and/or caregivers are agreeable to this plan of care and follow-up instructions have been explained in detail. The patient and/or caregivers have received these instruction. The patient/and or caregivers are aware that any significant change in condition or worsening of symptoms should prompt an immediate return to this or the closest emergency department or call 911. CHASTITY JAMES was seen on 10/02/19 n the Emergency Room. At that time you were treated for an emergent condition, during your visit Laboratory, Radiology and/or other procedures may have been ordered. It is very important that you follow-up with your Primary Care Physician GIOVANNA JONES within the next 24- 48 hours to review your Emergency Room visit and the final results of testing that was ordered. Some test results such as Urine Cultures, Blood Cultures, and other cultures if ordered will not be finalized for 24-48 hours. If you do not have a Primary Care Provider please call the medical records department at [phone] ext [phone] to obtain a copy of your results or you may sign into our patient portal to obtain these results by visiting us @ [email or web address] and completing the following steps: 1. Click on the Patient Portal link 2. Click the Patient Self Enrollment Link to complete the enrollment form and entering your 3. Once the enrollment form is completed you will receive an email with a temporary ID and password at the email address you provided. 4. Next choose a user name and password. Your user name must be at least 4 characters long and your password must be at least 4 characters long. 5. Choose a security question from the list and provide your answer to the question. If you already have signed into the Health Portal you may access your Health Care Information 24/03 by the following steps: 1. Login to our website @ [email or web address] 2. Enter your original user name and password. FAQS The [facility] Health Portal is an online tool that contains your Lab Results, Radiology Reports, Visit History, Discharge Instructions and Health Summary Lab and Radiology Results will not be available for 72 hours on the portal. The Portal is a secure site, passwords are encryted and URLs are re-written so they cannot be copied and pasted. You and authorized family members are the only ones who can access your Portal. Also there is a timeout feature that protects your information if you leave the Portal page open. If you have technical difficulty please use the Contact Us link on the page this will allow you to submit any questions you have regarding the Portal or you may contact the Medical Record Department at [phone] ext [phone]. Prescriptions: Naproxen 375 mg [Naprosyn 375 mg] 375 mg PO Q8H #30 tablet
[2019-10-02] MEDS ORDERED: Norflex 60 MG/2 ML ONE (15:27)
[2019-10-02 15:53] VITALS: BP 123/83; PULSE 56
--- NOTE | 2019-10-02 19:59 | XRAY ---
Indication: Pain following fall. Comparison: March 02, 2019. AP pelvis and 2 views of the left hip again demonstrates stable benign soft tissue calcification proximal medial thigh and a few pelvic phleboliths. No new/acute findings. Lumbar spine reported separately.
--- NOTE | 2019-10-02 20:02 | XRAY ---
Indication: Low back pain following fall. Comparison: CT lumbar spine May 21, 2014. 3 views of the lumbar spine again demonstrates 5 lumbar vertebral segments with moderate dextrorotoscoliosis centered at L3, minimal T12/L1 anterior wedging deformities, and moderate/advanced multilevel degenerative spondylosis. No acute fracture, subluxation, or suspicious bony lesions.
== END 2019-10-02 16:13 | disposition home or self-care (01) ==
LOC: ED 14:51
DX: M25.552 Pain in left hip (principal); M54.9 Dorsalgia, unspecified; M47.896 Other spondylosis, lumbar region; S70.02XA Contusion of left hip, initial encounter; W19.XXXA Unspecified fall, initial encounter; Z79.899 Other long term (current) drug therapy
CPT/HCPCS: 72100; 73502; 96372; 99284; J1885; J2360

== ENCOUNTER 2021-09-04 13:04 | Emergency (ER) | payer MEDICARE ==
--- NOTE | 2021-09-04 13:40 | ERPHSYRPT ---
- History of Present Illness Time Seen by Provider: 09/04/21 13:27 Patient Subjective Stated Complaint: Cough Triage Nursing Assessment: Patient ambulated back to ED and transferred self to bed. Patient A+O X3. Patient's skin pink, warm and dry. Patient complains of cough ,headache, bodyaches, SOB and diarrhea that started two days ago. Patient states when he cough his chest will hurt 8/10. Lungs clear a/p blade. Allergies/Adverse Reactions: Iodinated Contrast Media [IV Dye, Iodine Containing Contrast ] Allergy (Mild, Verified 09/04/21 13:07) Hives Penicillins Allergy (Mild, Verified 09/04/21 13:07) Hives Home Medications: Metronidazole/Skin Cleanser 23 [Rosadan 0.75% Gel Kit] 1 each TP BID 08/26/16 [History] Zolpidem Tartrate [Ambien] 5 mg PO HS PRN 11/17/16 [History] Oxycodone HCl 5 mg PO HS 10/04/17 [History] Oxycodone Myristate [Xtampza ER] 9 mg PO BID 10/04/17 [History] Famotidine [Pepcid] 40 mg PO BID 09/15/19 [History] Ondansetron ODT 4 MG [Zofran Odt 4 mg] 4 mg SL UD PRN 09/15/19 [History] Hx Tetanus, Diphtheria Vaccination/Date Given: Yes Hx Influenza Vaccination/Date Given: Yes Hx Pneumococcal Vaccination/Date Given: Yes Immunizations Up to Date: Yes Travel Risk - International Travel Have you traveled outside of the country in past 3 weeks: No - Coronavirus Screening Are you exhibiting any of the following symptoms?: No Symptoms: Cough: New Onset, Headaches/Body Aches/Fatigue Close contact with a COVID-19 positive Pt in past 14-21 Days: No - Vaccine Status Have you recieved a Covid-19 vaccination: Yes [employer]: Moderna - Vaccination Dates Date of 2cond Vaccination (if applicable): October 2020 - Past Medical History Pertinent Past Medical History: Yes Neurological History: No Pertinent History ENT History: Glaucoma Cardiac History: Angina, Other Respiratory History: Asthma, Bronchitis Endocrine Medical History: No Pertinent History Musculoskeletal History: Arthritis GI Medical History: GERD, Hernia, Polyps, Other History: No Pertinent History Psycho-Social History: Anxiety, Depression Male Reproductive Disorders: No Pertinent History Other Medical History: heart cath - Past Surgical History Past Surgical History: Yes Neuro Surgical History: No Pertinent History Cardiac: Cardiac Catheterization Respiratory: No Pertinent History Gastrointestinal: Bowel Surgery, Colon Resection, Hernia Repair Genitourinary: No Pertinent History Musculoskeletal: Orthopedic Surgery Male Surgical History: No Pertinent History Other Surgical History: Pt had major facial reconstruction; also colon resection for obstruction by polyps, shoulder surgery; Right thumb was surgically reattached after it was accidentally severed. right shoulder surgery (2017) , rt shoulder surgery 2018 - Social History Smoking Status: Never smoker Exposure to second hand smoke: Yes Drug Use: none Patient Lives Alone: No - Nursing Vital Signs Nursing Vital Signs: Initial Vital Signs Temperature 97.6 F 09/04/21 13:08 Pulse Rate 66 09/04/21 13:08 Respiratory Rate 18 09/04/21 13:08 Blood Pressure 178/102 09/04/21 13:08 O2 Sat by Pulse Oximetry 98 09/04/21 13:08 Pain Scale Pain Intensity 8 - Physical Exam SpO2: 98 - Course Nursing assessment & vital signs reviewed: Yes EKG Interpreted by Me: RATE (56), Sinus Rhythm, NORMAL AXIS, NORMAL INTERVALS, NORMAL QRS Ordered Tests: Active Orders 24 hr Category Date Time Status CHEST 1 VIEW (PORTABLE) Stat Exams 09/04/21 13:41 Completed INFLUENZA A+B JORGE Stat Lab 09/04/21 14:08 Completed Lab/Rad Data: Laboratory Results 09/04/21 Range/Units 14:08 Influenza Type A Ag NEGATIVE (NEGATIVE) Influenza Type B Ag NEGATIVE (NEGATIVE) - Departure Departure Disposition: Home Clinical Impression: Bronchitis Condition: Stable Critical Care Time: No Referrals: GIOVANNA JONES MD [Primary Care Provider] - Follow up/PCP as directed Additional Instructions: COVID test is still pending. Prescriptions: Benzonatate 200 mg PO TID PRN #30 PRN Reason: Cough Azithromycin 250 mg [Zithromax 250 MG TABLET] 250 mg PO ZPACK #6 tablet
--- NOTE | 2021-09-04 13:58 | XRAY ---
Indication: Cough and congestion. Sinus drainage. Comparison: September 15, 2019. Portable chest unchanged again demonstrating left base subsegmental atelectasis/scarring. Remaining lungs clear. Heart not enlarged. Bony thorax intact again with mild osteopenia, degenerative changes, and right shoulder arthroplasty. No new/acute findings.
[2021-09-04 14:58] LABS: INFLUENZA A NEGATIVE (NEGATIVE); INFLUENZA B NEGATIVE (NEGATIVE)
[2021-09-04 15:19] VITALS: BP 141/82; PULSE 53; O2SAT 96
== END 2021-09-04 15:28 | disposition home or self-care (01) ==
LOC: ED 13:04
DX: J40 Bronchitis, not specified as acute or chronic (principal); R51.9 Headache, unspecified; M79.10 Myalgia, unspecified site; Z79.891 Long term (current) use of opiate analgesic
CPT/HCPCS: 71045; 87400; 99284; U0003

== ENCOUNTER 2022-01-26 23:02 | Emergency (ER) | payer MEDICARE ==
[2022-01-26] MEDS ORDERED: PERCOCET TABLET 5/325MG PO ONE (23:30)
[2022-01-26 23:34] VITALS: O2SAT 97
--- NOTE | 2022-01-26 23:41 | ERPHSYRPT ---
- History of Present Illness Time Seen by Provider: 01/26/22 23:12 Source: patient Exam Limitations: no limitations Patient Subjective Stated Complaint: pt states he slipped on his porch and fell on his lt shoulder. states he has had decreased range of motion and increased pain. Triage Nursing Assessment: pt alert and oriented, answers questions approp. pt ambulatory with steady gait noted. respirations nonlabored. skin warm and dry. pt reports tenderness to lt shoulder. cap refill and radial pulse wnl. Physician History: 76-year-old male presented in the ER with chief complaint of left shoulder pain since yesterday after he slipped on a wet porch yesterday and fell against the brick wall hitting his left shoulder. Since then he is having difficulty movements of shoulder in all direction. Pain is aggravated with movement and better with being still. No numbness tingling weakness of left upper extremity. No injury anywhere else. Occurred: yesterday Method of Injury: fell Quality: sharpness Severity of Pain-Max: moderate Severity of Pain-Current: moderate Extremities Pain Location: shoulder: left Modifying Factors: Improves With: immobilization. Worsens With: movement Associated Symptoms: none Allergies/Adverse Reactions: Iodinated Contrast Media [IV Dye, Iodine Containing Contrast ] Allergy (Mild, Verified 09/04/21 13:07) Hives Penicillins Allergy (Mild, Verified 09/04/21 13:07) Hives Home Medications: Metronidazole/Skin Cleanser 23 [Rosadan 0.75% Gel Kit] 1 each TP BID 08/26/16 [History] Zolpidem Tartrate [Ambien] 5 mg PO HS PRN 11/17/16 [History] Oxycodone HCl 5 mg PO HS 10/04/17 [History] Oxycodone Myristate [Xtampza ER] 9 mg PO BID 10/04/17 [History] Famotidine [Pepcid] 40 mg PO BID 09/15/19 [History] Ondansetron ODT 4 MG [Zofran Odt 4 mg] 4 mg SL UD PRN 09/15/19 [History] Hx Tetanus, Diphtheria Vaccination/Date Given: Yes Hx Influenza Vaccination/Date Given: Yes Hx Pneumococcal Vaccination/Date Given: Yes Immunizations Up to Date: Yes Travel Risk - International Travel Have you traveled outside of the country in past 3 weeks: No - Coronavirus Screening Are you exhibiting any of the following symptoms?: No Close contact with a COVID-19 positive Pt in past 14-21 Days: No - Vaccine Status Have you recieved a Covid-19 vaccination: Yes 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 - Vaccination Dates Date of 2cond Vaccination (if applicable): October 2020 - Review of Systems Constitutional: No Symptoms Ears, Nose, & Throat: No Symptoms Respiratory: No Symptoms Cardiac: No Symptoms Abdominal/Gastrointestinal: No Symptoms Genitourinary Symptoms: No Symptoms Musculoskeletal: Injury, Joint Pain Skin: No Symptoms Neurological: No Symptoms Psychological: No Symptoms Endocrine: No Symptoms Hematologic/Lymphatic: No Symptoms - Past Medical History Pertinent Past Medical History: Yes Neurological History: No Pertinent History ENT History: Glaucoma Cardiac History: Angina, Other Respiratory History: Asthma, Bronchitis Endocrine Medical History: No Pertinent History Musculoskeletal History: Arthritis GI Medical History: GERD, Hernia, Polyps, Other History: No Pertinent History Psycho-Social History: Anxiety, Depression Male Reproductive Disorders: No Pertinent History Other Medical History: heart cath - Past Surgical History Past Surgical History: Yes Neuro Surgical History: No Pertinent History Cardiac: Cardiac Catheterization Respiratory: No Pertinent History Gastrointestinal: Bowel Surgery, Colon Resection, Hernia Repair Genitourinary: No Pertinent History Musculoskeletal: Orthopedic Surgery Male Surgical History: No Pertinent History Other Surgical History: Pt had major facial reconstruction; also colon resection for obstruction by polyps, shoulder surgery; Right thumb was surgically reattached after it was accidentally severed. right shoulder surgery (2017) , rt shoulder surgery 2018. hiatal hernia repair and repeat after esophageal tear - Social History Smoking Status: Never smoker Exposure to second hand smoke: Yes Drug Use: none Patient Lives Alone: No - Nursing Vital Signs Nursing Vital Signs: Initial Vital Signs Temperature 97.8 F 01/26/22 23:16 Pulse Rate 66 01/26/22 23:16 Respiratory Rate 16 01/26/22 23:16 Blood Pressure 149/93 01/26/22 23:16 O2 Sat by Pulse Oximetry 97 01/26/22 23:16 Pain Scale Pain Intensity 9 - Physical Exam General Appearance: no apparent distress, alert Eyes, Ears, Nose, Throat Exam: normal ENT inspection Neck Exam: normal inspection, non-tender, supple, full range of motion Cardiovascular/Respiratory Exam: chest non-tender, normal breath sounds, regular rate/rhythm Back Exam: normal inspection, normal range of motion Shoulder Exam: normal inspection, limited ROM (Left shoulder in all direction), soft tissue tenderness, No bone tenderness Elbow/Forearm Exam: normal inspection, non-tender, no evidence of injury, normal ROM Wrist Exam: normal inspection, non-tender, no evidence of injury, normal ROM Hand Exam: normal inspection, non-tender, no evidence of injury Neuro/Tendon Exam: normal sensation, normal tendon functions Mental Status Exam: alert, oriented x 3 Skin Exam: normal color SpO2 Interpretation: normal SpO2: 97 O2 Delivery: Room Air Ordered Tests: Active Orders 24 hr Category Date Time Status SHOULDER Stat Exams 01/26/22 Ordered Medication Summary Discontinued Medications Generic Name Dose Route Start Last Admin Trade Name Freq PRN Reason Stop Dose Admin Oxycodone/Acetaminophen 1 tab 01/26/22 23:30 Oxycodone Hcl/Apap 5 Mg/325 Mg Tablet PO 01/26/22 23:31 STAT ONE - Progress Progress: unchanged Progress Note: 01/26/22 23:58 Offered pain medication but does not have any body to drive him home. We will give him a pill to go home and take. X-rays reviewed by me did not reveal any obvious fracture dislocation. I believe patient has a contusion/ligamentous injury and recommended outpatient follow-up with his orthopedic surgeon. Discussed signs symptoms of worsening needing return to ER which he seems understanding. Counseled pt/family regarding: diagnosis, need for follow-up, rad results - Departure Departure Disposition: Home Clinical Impression: Acute shoulder pain due to trauma Condition: Stable Critical Care Time: No Referrals: GIOVANNA JONES MD [Primary Care Provider] - Follow Up with PCP/3 days ORTHO - TRE CARTER NP [NON-STAFF PHY W/O PRIVILEGES] - Follow up/PCP as directed (In 3 days for reevaluation) Instructions: Shoulder Sprain (DC) Additional Instructions: Take pain medications which you have at home as recommended. Follow-up with primary care and Ortho for reevaluation. Return to ER for any worsening.
[2022-01-27] MEDS ORDERED: PERCOCET TABLET 5/325MG ONE (00:01)
[2022-01-27 00:18] VITALS: BP 127/73; PULSE 62
--- NOTE | 2022-01-27 07:47 | XRAY ---
Indication: Pain. Comparison: None 3 view left shoulder demonstrates osteopenia, mild glenohumeral/AC degenerative arthropathy, and tiny left axilla calcified node. 8 mm subacromial ossification possibly bursal or tendinous in etiology and sequela to old injury/inflammation. No other bony, articular, or soft tissue abnormalities.
== END 2022-01-27 00:18 | disposition home or self-care (01) ==
LOC: ED 23:02
DX: S40.012A Contusion of left shoulder, initial encounter (principal); W01.198A Fall on same level from slipping, tripping and stumbling with subsequent striking against other object, initial encounter; Y92.008 Other place in unspecified non-institutional (private) residence as the place of occurrence of the external cause; M25.512 Pain in left shoulder; Z79.891 Long term (current) use of opiate analgesic
CPT/HCPCS: 73030; 99283; A9270-GY

== ENCOUNTER 2023-01-20 14:09 | Emergency (ER) | payer MEDICARE ==
[2023-01-20] MEDS ORDERED: TORAdol 30 mg Injection IV ONE (14:20)
[2023-01-20] MEDS ORDERED: Sodium Chloride 0.9% 1000 ML 1,000 ML IV SCH (14:30)
[2023-01-20] MEDS ORDERED: TORAdol 30 mg Injection ONE (14:35)
[2023-01-20] MEDS ORDERED: Sodium Chloride 0.9% 1000 ML 1,000 ML ONE (14:35)
[2023-01-20 14:36] LABS: Absolute Neutrophil Ct (ANC) 3.34 x10^3/uL (1.4-6.9); BASOPHIL % 0.4 % (0.0-0.4); Basophil (Absolute #) 0.02 x10^3/uL (0-0.4); Eosinophil % 2.2 % (0.00-5.0); Eosinophil (Absolute #) 0.11 x10^3/uL (0-0.5); Hematocrit 42.8 % (42-50); Hemoglobin 15.1 g/dL (12.5-18.0); IMMATURE GRAN # 0.01 x10^3u/L (0.00-0.03); IMMATURE GRAN % 0.2 % (0.00-0.4); Lymphocyte (Absolute #) 1.07 x10^3/uL (1.0-4.6); Lymphocytes % 21.6 % (24.0-44.0); Mean Cell Volume 87.9 fL (78-100); Mean Corpuscular Hgb Concent. 35.3 g/dL (32-36); Mean Platelet Volume 10.8 fL (7.5-11.0); Monocytes % 8.1 % (0.0-12.0); Neutrophil % 67.5 % (36.0-66.0); Platelet Count 183 x10^3/uL (150-450); Red Blood Count 4.87 x10^6/uL (4.1-5.6); Red Cell Distribution Width 12.4 % (11.5-14.0)
[2023-01-20 14:38] LABS: Appearance Clear (Clear); Bacteria None Seen /HPF (None Seen); Bilirubin Negative (Negative); Blood Negative (Negative); Epithelial Cells None Seen /HPF (None Seen); Glucose, Urine >=1000 mg/dL (Negative); Hyaline Casts NONE SEEN /LPF (0-2); Ketones Trace (Negative); Leukocyte Esterase Negative (Negative); Nitrite Negative (Negative); Protein,Urine Dip Negative (Negative); RBC 0-2 /HPF (0-5); Specific Gravity >=1.030 (1.005-1.030); Urobilinogen 0.2 mg/dL (0.2); WBC 0-2 /HPF (0-5)
[2023-01-20 14:39] LABS: ADD URINE CULTURE? NO (NO)
[2023-01-20 14:47] LABS: ALBUMIN 4.3 g/dL (3.5-5.0); ALKALINE PHOSPHATASE 185 U/L (38-126); AMYLASE 91 U/L (30-110); ANION GAP 16.3 MEQ/L (5-15); BLOOD UREA NITROGEN 18 mg/dL (9-20); CHLORIDE 97 mmol/L (98-107); Calcium 9.3 mg/dL (8.4-10.2); Carbon Dioxide 25 mmol/L (22-30); Creatinine 1 0.73 mg/dL (0.66-1.25); EST GLOMERULAR FILTRATION RATE > 60.0 ML/MIN; LIPASE 255 U/L (23-300); Potassium 4.4 mmol/L (3.5-5.1); SGOT/AST 44 U/L (17-59); SGPT/ALT 68 U/L (0-50); SODIUM 133 mmol/L (137-145); Total Protein 7.6 g/dL (6.3-8.2)
[2023-01-20 14:58] LABS: Glucose 612 mg/dL (74-106)
[2023-01-20] MEDS ORDERED: HUMULIN R SQ ONE (15:16)
[2023-01-20] MEDS ORDERED: Zofran 4 MG/2 ML VIAL ONE (15:26)
[2023-01-20] MEDS ORDERED: Zofran 4 MG/2 ML VIAL IV ONE (15:26)
--- NOTE | 2023-01-20 15:27 | XRAY ---
Indication: Left-sided pain 1 week. Two-dimensional testicular sonogram performed. Comparison: None Both testicles are homogeneous in echogenicity with normal color perfusion. Right testicle measures 3.0 x 2.6 x 2.7 cm and the left measures 2.6 x 1.9 x 2.9 cm. 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 Left and right epididymis sonographically unremarkable. Left scrotum demonstrates small herniated loop of bowel. No hydrocele. Impression: Small left inguinal hernia and tiny right testicle tunica albuginea cyst. Remaining testicle sonogram is negative.
--- NOTE | 2023-01-20 16:29 | XRAY ---
Indication: Inguinal/testicle pain. Multiple contiguous axial images obtained through the abdomen and pelvis without contrast. Comparison: April 29, 2018 Lung bases again demonstrates minimal left base subsegmental atelectasis/scarring. Heart not enlarged. Stable gastroesophageal junction posterior changes. Noncontrasted stomach and bowel loops appear nonobstructed with normal appendix. Again minimal scattered colonic diverticulosis and intact sigmoid anastomosis. No free fluid/air. Urinary bladder is now moderately distended concerning for outlet obstruction versus neurogenic bladder. Remaining liver, gallbladder, pancreas, spleen, adrenal glands, kidneys, ureters, bladder, and aorta are unremarkable for noncontrast exam. Osseous structures intact again with osteopenia, moderate degenerative changes about the spine, and moderate dextrorotoscoliosis. No ventral or inguinal hernias. Impression: 1. Distended urinary bladder. Rule out outlet atrophy versus neurogenic bladder. 2. Again chronic findings including colonic diverticulosis without diverticulitis, GI postsurgical changes, and chronic bony findings. 3. Remaining CT abdomen/pelvis without contrast exam is negative.
[2023-01-20 16:52] VITALS: BP 141/87; O2SAT 99
--- NOTE | 2023-01-20 17:01 | ERPHSYRPT ---
- History of Present Illness Time Seen by Provider: 01/20/23 14:35 Historian: patient Exam Limitations: no limitations Patient Subjective Stated Complaint: C/O Left groin/testicular pain. Pain was intermittent and started on Friday but the pain is now constant. Triage Nursing Assessment: Patient ambulated back to ER holding his LLQ/left groin area. He is alert and oriented. No SOB. Dr. Clemente in room to examine testicles. Physician History: Patient is a 77-year-old white male who presents with a complaint of left lower quadrant and left inguinal pain. He says that 2 years ago he had a swelling in the same area which was drained and was found to contain fluid. He also denies any elevated blood sugar although his blood sugar on arrival was greater than 600. Timing/Duration: today Activities at Onset: none Quality: throbbing Abdominal Pain Onset Location: LLQ Pain Radiation: groin Severity of Pain-Max: moderate Severity of Pain-Current: mild Associated Symptoms: denies symptoms Previous symptoms: same symptoms as today (In the remote past) Allergies/Adverse Reactions: Iodinated Contrast Media [IV Dye, Iodine Containing Contrast ] Allergy (Mild, Verified 01/20/23 14:18) Hives Penicillins Allergy (Mild, Verified 01/20/23 14:18) Hives Home Medications: Metronidazole/Skin Cleanser 23 [Rosadan 0.75% Gel Kit] 1 each TP BID 08/26/16 [History] Zolpidem Tartrate [Ambien] 10 mg PO HS PRN 11/17/16 [History] Oxycodone HCl 5 mg PO DAILY PRN 10/04/17 [History] Oxycodone Myristate [Xtampza ER] 9 mg PO BID 10/04/17 [History] Ondansetron ODT 4 MG [Zofran Odt 4 mg] 4 mg SL TID PRN 09/15/19 [History] Latanoprost [Xalatan] 1 drop DROPS HS 01/20/23 [History] Omeprazole 1 cap PO BID 01/20/23 [History] Oxybutynin Chloride Xl 5 mg [Ditropan XL 5 MG] 1 tab PO DAILY 01/20/23 [History] Hx Tetanus, Diphtheria Vaccination/Date Given: Yes Hx Influenza Vaccination/Date Given: Yes Hx Pneumococcal Vaccination/Date Given: Yes Immunizations Up to Date: Yes Travel Risk - International Travel Have you traveled outside of the country in past 3 weeks: No - Coronavirus Screening Are you exhibiting any of the following symptoms?: No Close contact with a COVID-19 positive Pt in past 14-21 Days: No - Vaccine Status Have you recieved a Covid-19 vaccination: Yes 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 - Vaccination Dates Date of 2cond Vaccination (if applicable): October 2020 - Review of Systems Constitutional: No Fever, No Chills Eyes: No Symptoms Ears, Nose, & Throat: No Symptoms Respiratory: No Cough, No Dyspnea Cardiac: No Chest Pain, No Edema, No Syncope Abdominal/Gastrointestinal: Abdominal Pain, No Nausea, No Vomiting, No Diarrhea Genitourinary Symptoms: Testicle Pain, No Dysuria Musculoskeletal: No Back Pain, No Neck Pain Skin: No Rash Neurological: No Dizziness, No Focal Weakness, No Sensory Changes Psychological: No Symptoms Endocrine: No Symptoms All Other Systems: Reviewed and Negative - Past Medical History Pertinent Past Medical History: Yes Neurological History: No Pertinent History ENT History: Glaucoma Cardiac History: Angina, Other Respiratory History: Asthma, Bronchitis Endocrine Medical History: No Pertinent History Musculoskeletal History: Arthritis GI Medical History: GERD, Hernia, Polyps, Other History: No Pertinent History Psycho-Social History: Anxiety, Depression Male Reproductive Disorders: Other Other Medical History: Insomnia - Past Surgical History Past Surgical History: Yes Neuro Surgical History: No Pertinent History Cardiac: Cardiac Catheterization Respiratory: No Pertinent History Gastrointestinal: Bowel Surgery, Colon Resection, Hernia Repair Genitourinary: No Pertinent History Musculoskeletal: Orthopedic Surgery Male Surgical History: No Pertinent History Other Surgical History: Pt had major facial reconstruction; also colon resection for obstruction by polyps, shoulder surgery; Right thumb was surgically reattached after it was accidentally severed. Feeding tube placement and removal. right shoulder surgery (2017) , rt shoulder surgery 2018. hiatal hernia repair and repeat after esophageal tear - Social History Smoking Status: Never smoker Exposure to second hand smoke: Yes Drug Use: none Patient Lives Alone: No - Nursing Vital Signs Nursing Vital Signs: Initial Vital Signs Temperature 96.9 F 01/20/23 14:19 Pulse Rate 88 01/20/23 14:19 Respiratory Rate 20 01/20/23 14:19 Blood Pressure 173/106 01/20/23 14:19 O2 Sat by Pulse Oximetry 98 01/20/23 14:19 Pain Scale Pain Intensity 5 - Physical Exam General Appearance: no apparent distress, alert Eye Exam: PERRL/EOMI, eyes nml inspection Ears, Nose, Throat Exam: normal ENT inspection, pharynx normal, moist mucous membranes Neck Exam: normal inspection, non-tender, supple, full range of motion Respiratory Exam: normal breath sounds, lungs clear, No respiratory distress Cardiovascular Exam: regular rate/rhythm, normal heart sounds Gastrointestinal/Abdomen Exam: soft, No tenderness, No mass Male Genitalia Exam: hernia (Possible small left inguinal hernia), testicular tenderness Back Exam: normal inspection, normal range of motion, No CVA tenderness, No vertebral tenderness Extremity Exam: normal inspection, normal range of motion, pelvis stable Neurologic Exam: alert, oriented x 3, cooperative, normal mood/affect, nml cerebellar function, sensation nml, No motor deficits Skin Exam: normal color, warm, dry SpO2 Interpretation: normal SpO2: 99 O2 Delivery: Room Air - Course Nursing assessment & vital signs reviewed: Yes - CT Exams Abdomen/Pelvis CT Interpretation: Other (No hernias visualized) - Radiology Ultrasound Exam Scrotal Ultrasound: Other (Ultrasound shows perhaps a small left inguinal hernia) Ordered Tests: Active Orders 24 hr Category Date Time Status IV Insertion STAT Care 01/20/23 14:20 Active ABDOMEN AND PELVIS W/0 CONTRAS [CT] Stat Exams 01/20/23 15:21 Completed TESTICLE [US] Stat Exams 01/20/23 14:20 Completed AMYLASE Stat Lab 01/20/23 14:30 Completed CBC W DIFF Stat Lab 01/20/23 14:30 Completed CMP Stat Lab 01/20/23 14:30 Completed LIPASE Stat Lab 01/20/23 14:30 Completed Lactic Acid Stat Lab 01/20/23 14:35 Completed Lactic Acid Stat Lab 01/20/23 16:39 Received POCT GLUCOSE Stat Lab 01/20/23 15:22 Completed POCT GLUCOSE Stat Lab 01/20/23 16:49 Completed POCT GLUCOSE Stat Lab 01/20/23 16:49 Received UA W/RFX UR CULTURE Stat Lab 01/20/23 14:30 Completed Medication Summary Generic Name Dose Route Start Last Admin Trade Name Freq PRN Reason Stop Dose Admin Sodium Chloride 1,000 mls @ 100 mls/hr 01/20/23 14:30 01/20/23 16:39 Sodium Chloride 0.9% 1000 Ml IV 02/19/23 14:29 Infused .Q10H GARY Infusion Discontinued Medications Generic Name Dose Route Start Last Admin Trade Name Ronda PRN Reason Stop Dose Admin Insulin Human Regular 10 unit 01/20/23 15:16 Insulin Regular, Human 1 Unit SQ 01/20/23 15:17 STAT ONE Ketorolac Tromethamine 30 mg 01/20/23 14:20 01/20/23 14:36 Ketorolac Tromethamine 30 Mg/Ml Inj IV 01/20/23 14:21 30 mg STAT ONE Administration Ketorolac Tromethamine Confirm 01/20/23 14:35 Ketorolac Tromethamine 30 Mg/Ml Inj Administered 01/20/23 14:36 Dose 30 mg .ROUTE .STK-MED ONE Ondansetron HCl 4 mg 01/20/23 15:26 01/20/23 15:27 Ondansetron Hcl 4 Mg/2 Ml Vial IV 01/20/23 15:27 4 mg STAT ONE Administration Ondansetron HCl Confirm 01/20/23 15:26 Ondansetron Hcl 4 Mg/2 Ml Vial Administered 01/20/23 15:27 Dose 4 mg .ROUTE .STK-MED ONE Lab/Rad Data: Laboratory Result Diagrams 01/20/23 14:30 01/20/23 14:30 Laboratory Results 01/20/23 01/20/23 01/20/23 Range/Units 16:49 15:22 14:35 WBC (4.0-10.5) x10^3/uL RBC (4.1-5.6) x10^6/uL Hgb (12.5-18.0) g/dL Hct (42-50) % MCV (78-100) fL MCH (26-32) pg MCHC (32-36) g/dL RDW (11.5-14.0) % Plt Count (150-450) x10^3/uL MPV (7.5-11.0) fL Gran % (36.0-66.0) % Immature Gran % (Auto) (0.00-0.4) % Nucleat RBC Rel Count (0.00-0.1) % Eos # (Auto) (0-0.5) x10^3/uL Immature Gran # (Auto) (0.00-0.03) x10^3u/L Absolute Lymphs (auto) (1.0-4.6) x10^3/uL Absolute Monos (auto) (0.0-1.3) x10^3/uL Absolute Nucleated RBC (0.00-0.01) x10^3u/L Lymphocytes % (24.0-44.0) % Monocytes % (0.0-12.0) % Eosinophils % (0.00-5.0) % Basophils % (0.0-0.4) % Absolute Granulocytes (1.4-6.9) x10^3/uL Basophils # (0-0.4) x10^3/uL Sodium (137-145) mmol/L Potassium (3.5-5.1) mmol/L Chloride (98-107) mmol/L Carbon Dioxide (22-30) mmol/L Anion Gap (5-15) MEQ/L BUN (9-20) mg/dL Creatinine (0.66-1.25) mg/dL Estimated GFR ML/MIN Glucose (74-106) mg/dL POC Glucometer 429 H 494 H (74 to 106) mg/dL Lactic Acid 2.3 H (0.4-2.0) Calcium (8.4-10.2) mg/dL Total Bilirubin (0.2-1.3) mg/dL AST (17-59) U/L ALT (0-50) U/L Alkaline Phosphatase (38-126) U/L Serum Total Protein (6.3-8.2) g/dL Albumin (3.5-5.0) g/dL Amylase (30-110) U/L Lipase (23-300) U/L Urine Color (Yellow) Urine Appearance (Clear) Urine pH (4.6-8.0) Ur Specific [place] (1.005-1.030) Urine Protein (Negative) Urine Glucose (UA) (Negative) mg/dL Urine Ketones (Negative) Urine Blood (Negative) Urine Nitrite (Negative) Urine Bilirubin (Negative) Urine Urobilinogen (0.2) mg/dL Ur Leukocyte Esterase (Negative) U Hyaline Cast (Auto) (0-2) /LPF Urine Microscopic RBC (0-5) /HPF Urine Microscopic WBC (0-5) /HPF Ur Epithelial Cells (None Seen) /HPF Urine Bacteria (None Seen) /HPF Urine Culture Reflexed (NO) 01/20/23 01/20/23 01/20/23 Range/Units 14:30 14:30 14:30 WBC 5.0 (4.0-10.5) x10^3/uL RBC 4.87 (4.1-5.6) x10^6/uL Hgb 15.1 (12.5-18.0) g/dL Hct 42.8 (42-50) % MCV 87.9 (78-100) fL MCH 31.0 (26-32) pg MCHC 35.3 (32-36) g/dL RDW 12.4 (11.5-14.0) % Plt Count 183 (150-450) x10^3/uL MPV 10.8 (7.5-11.0) fL Gran % 67.5 H (36.0-66.0) % Immature Gran % (Auto) 0.2 (0.00-0.4) % Nucleat RBC Rel Count 0.0 (0.00-0.1) % Eos # (Auto) 0.11 (0-0.5) x10^3/uL Immature Gran # (Auto) 0.01 (0.00-0.03) x10^3u/L Absolute Lymphs (auto) 1.07 (1.0-4.6) x10^3/uL Absolute Monos (auto) 0.40 (0.0-1.3) x10^3/uL Absolute Nucleated RBC 0.00 (0.00-0.01) x10^3u/L Lymphocytes % 21.6 L (24.0-44.0) % Monocytes % 8.1 (0.0-12.0) % Eosinophils % 2.2 (0.00-5.0) % Basophils % 0.4 (0.0-0.4) % Absolute Granulocytes 3.34 (1.4-6.9) x10^3/uL Basophils # 0.02 (0-0.4) x10^3/uL Sodium 133 L (137-145) mmol/L Potassium 4.4 (3.5-5.1) mmol/L Chloride 97 L (98-107) mmol/L Carbon Dioxide 25 (22-30) mmol/L Anion Gap 16.3 H (5-15) MEQ/L BUN 18 (9-20) mg/dL Creatinine 0.73 (0.66-1.25) mg/dL Estimated GFR > 60.0 ML/MIN Glucose 612 H* (74-106) mg/dL POC Glucometer (74 to 106) mg/dL Lactic Acid (0.4-2.0) Calcium 9.3 (8.4-10.2) mg/dL Total Bilirubin 0.80 (0.2-1.3) mg/dL AST 44 (17-59) U/L ALT 68 H (0-50) U/L Alkaline Phosphatase 185 H (38-126) U/L Serum Total Protein 7.6 (6.3-8.2) g/dL Albumin 4.3 (3.5-5.0) g/dL Amylase 91 (30-110) U/L Lipase 255 (23-300) U/L Urine Color Yellow (Yellow) Urine Appearance Clear (Clear) Urine pH 6.0 (4.6-8.0) Ur Specific [place] >=1.030 A (1.005-1.030) Urine Protein Negative (Negative) Urine Glucose (UA) >=1000 A (Negative) mg/dL Urine Ketones Trace A (Negative) Urine Blood Negative (Negative) Urine Nitrite Negative (Negative) Urine Bilirubin Negative (Negative) Urine Urobilinogen 0.2 (0.2) mg/dL Ur Leukocyte Esterase Negative (Negative) U Hyaline Cast (Auto) NONE SEEN (0-2) /LPF Urine Microscopic RBC 0-2 (0-5) /HPF Urine Microscopic WBC 0-2 (0-5) /HPF Ur Epithelial Cells None Seen (None Seen) /HPF Urine Bacteria None Seen (None Seen) /HPF Urine Culture Reflexed NO (NO) - Progress Progress: improved Progress Note: 01/20/23 17:00 Discussed the situation with Dr. Byers with his PCP he will not wound like him on metformin and Amaryl oral for his blood sugar and follow-up in the office. Discussed with : Yong Will see patient in: office Medical Desision Making - Discussion of managment Care discussed with:: PCP Reviewed:: Test results Agreed on:: Treatment plan, need for follow-up Will see patient: In office - Diagnostic Testing Diagnostic test were ordered, analyzed, and reviewed by me: Yes Radiological Interpretation: Reviewed by me - Risk of complications The pt has a mod risk of morbidity or mortality based on: Need for prescription drug management - Departure Departure Disposition: Home Clinical Impression: Left inguinal pain, Hyperglycemia Condition: Stable Critical Care Time: No Referrals: GIOVANNA JONES MD [Primary Care Provider] - Follow up/PCP as directed Instructions: Groin Strain (DC) Prescriptions: Glimepiride 2 mg [Amaryl 2 MG] 2 mg PO DAILY 30 Days #30 tablet Metformin HCl 850 mg [Glucophage 850 MG] 850 mg PO BID 30 Days #60 tablet
[2023-01-20] MEDS ORDERED: Hydromorphone 1 mg/ml Injection IV ONE (17:04)
[2023-01-20] MEDS ORDERED: Hydromorphone 1 mg/ml Injection ONE (17:05)
[2023-01-20 17:07] VITALS: PULSE 75
[2023-01-20] MEDS ORDERED: Amaryl 2 MG ONE (17:57)
[2023-01-20] MEDS ORDERED: Glucophage 500 MG ONE (17:57)
[2023-01-21] MEDS ORDERED: Glucophage 850 MG PO SCH (08:00)
[2023-01-21] MEDS ORDERED: Amaryl 2 MG PO SCH (08:00)
== END 2023-01-20 18:18 | disposition home or self-care (01) ==
LOC: ED 14:09
DX: R10.2 Pelvic and perineal pain (principal); R73.9 Hyperglycemia, unspecified; R10.32 Left lower quadrant pain; Z79.84 Long term (current) use of oral hypoglycemic drugs; Z79.899 Other long term (current) drug therapy
CPT/HCPCS: 36000; 36415; 74176; 76870; 80053; 81001; 82150; 82947; 83036; 83605; 83690; 85025; 96374; 96375; 99284; J1170; J1885; J2405; A9270-GY